=== PATIENT | female | born 1965 | race Caucasian/White ===

== ENCOUNTER → 2016-05-24 | Outpatient (CLI) | payer BC, OTHER ==
[2016-01-02 11:18] VITALS: BP 124/78
[~2016-05-24] MED LIST: DULO20CA PO; IBUP-1060 PO; TRAM50TA PO; ZOLPIDEM 5 MG TABLET. PO ONE
--- NOTE | 2016-05-31 20:32 | SLEEP ---
DATE OF STUDY: 05/24/2016 ATTENDING PHYSICIAN: Dr. Wayne Torres. The patient is 50 years old who weighs ____ pounds with a BMI of 41. The patient's [place] score was 3. Sleep study was performed to rule out JESUS. This was a split night study. During the night of the study, the patient spent 419 minutes in bed and slept for 302 minutes with a low sleep efficiency of 72%. Sleep latency was 8 minutes with a REM latency of 63 minutes. Overall, sleep architecture showed increased stage I sleep, normal stage II sleep, increased slow wave and normal REM sleep. During the initial diagnostic portion of the study, the patient slept for 139 minutes. During this time, there were 9 obstructive apneas, 22 mixed apneas and no central apneas. There were 111 hypopneas. The patient's apnea hypopnea index was 61 per hour. Supine index 42 per hour. REM sleep was not seen during the diagnostic portion of the study. EKG monitoring revealed average heart rate was 78 beats per minute. No sustained arrhythmias were observed. PLMS were not seen. Review of nocturnal oximetry study revealed mean oxygen saturation greater then 92% with lowest of 86%. 5% of time oxygen saturation remained between 80% and 89%. The patient met the criteria for CPAP initiation. It was started at 5 cm of water and titrated up to 7 cm of water. At the final pressure, the patient slept for 98 minutes. AHI was reduced to only 4 per hour due to few rebound central apneas. The patient had supine as well as REM sleep. Oxygen saturation remained above 92%. The patient used small sized nasal pillows. IMPRESSION: 1. Severe sleep apnea-hypopnea syndrome with an AHI of 61 per hour. 2. Mild nocturnal hypoxia secondary to obstructive sleep apnea, but resolved with CPAP. 3. No clinically significant periodic limb movements during sleep. RECOMMENDATIONS: 1. CPAP at 7 cm of water completely eliminated the patient's sleep apnea, and should be used on a nightly basis. 2. Follow up in 4-6 weeks to assess compliance with CPAP and to document clinical improvement. 3. Weight loss is strongly advised. 4. Avoid DIESEL INSPECTOR depressants. 5. Caution regarding driving until symptoms of sleep apnea resolve with the use of CPAP. JATINDER HIRSCH MD DR: THONY/jm JOB#: [id number] / [id number] Wayne Sanchez
== END | disposition home or self-care (01) ==
LOC: SLPLAB 18:19
PROVIDERS: ATTEND Family Medicine
DX: G47.33 Obstructive sleep apnea (adult) (pediatric) (principal); R06.83 Snoring
CPT/HCPCS: 95810

== ENCOUNTER → 2016-08-10 | Outpatient (CLI) | payer OTHER ==
[2016-01-02 11:18] VITALS: BP 124/78
[~2016-08-10] MED LIST changes: -ZOLPIDEM 5 MG TABLET. PO ONE
--- NOTE | 2016-08-10 12:27 | RAD ---
MRI Cervical Spine Without Contrast History: Numbness and tingling in the right arm Technique: Multiplanar, multi sequential noncontrast MR imaging was performed of the cervical spine. Comparison: None Findings: Cervical cord caliber is within normal limits without focal signal abnormality. There is no significant abnormality cervical medullary junction. Cervical vertebral body stature and AP alignment are maintained. There is straightening of the cervical spine. There is mild degenerative disc disease C5-C6, mild disc desiccation C4-5 and C6-7. There is no significant focal marrow edema. C2-C3: Neural foramina are adequate. Central canal is borderline 10 mm on a development basis. C3-C4: Central canal is minimally narrowed to 9 and 10 mm on a developmental basis. Neural foramina are adequate. C4-C5: There is very shallow posterior central protrusion. Central canal is narrowed to approximately 7-8 mm in part on a developmental basis. Neural foramina are adequate. C5-C6: There is a broad posterior bulge, also apparently a very shallow extrusion extending below the intervertebral disc centrally. There is indentation on the ventral thecal sac. Central canal is narrowed to approximately 7 mm. There is uncovertebral degenerative change greater on the left. There is moderate left and mild right neural foramina compromise. C6-C7: There is negligible posterior central protrusion. Central canal is minimally narrowed to 9 to 10 mm mostly on a development basis. There is uncovertebral degenerative change. There is likely mild narrowing of the left neural foramen. There is suggestion of a shallow protrusion at the anterior margin of the right neural foramen, possible mild/moderate narrowing of the right neural foramen. However accurate characterization is somewhat limited due to motion. C7-T1: Spinal canal and neural foramina are adequate. Impression: 1. There is diffuse narrowing of the cervical spinal canal on a developmental basis, additional spinal stenosis on the order of 7 mm at C5-C6 and to a lesser degree at C6-7 and C4-5 as described. 2. There is [id number] neural foramina compromise as described on the left at C5-C6 and possibly on the right at C6-7. Electronically signed by: Tam Leyva MD (08/10/2016 12:25 PM)
== END | disposition home or self-care (01) ==
LOC: MRI 10:53
PROVIDERS: ATTEND Family Medicine
DX: M47.892 Other spondylosis, cervical region (principal)
CPT/HCPCS: 72141

== ENCOUNTER → 2016-11-16 | Outpatient (CLI) | payer OTHER ==
[2016-01-02 11:18] VITALS: BP 124/78
[~2016-11-16] MED LIST changes: +ATOR40TA59 PO; +DIPH25CA58 PO; +IOHEXOL 180 MG/ML 10 ML VIAL. ONE; +TIZA4TAB PO; +VENL37.5 PO; +ZOLP5TAB PO; +methylPREDNISolone ACETATE 40 MG/ML VIAL. ONE; +methylPREDNISolone ACETATE 80 MG/ML VIAL. ONE
--- NOTE | 2016-11-16 15:08 | PAIN ---
DATE OF SERVICE: 11/16/2016 INITIAL CONSULTATION FOR PAIN CLINIC CHIEF COMPLAINT: Neck and right upper extremity pain. HISTORY OF PRESENT ILLNESS: This is a 51-year-old female who presents with history of pain in the base of the neck and right upper extremity radiating down into the arm for about 1-2 months. The patient reports it gradually increased without the result of any specific injury or action that she is aware of. It has been getting worse with time, becoming more difficult to sleep. It is difficulty to use her arm above her head. Even simple acts of getting dressed, putting her arm through a coat jacket, sleeves etc. is becoming very difficult. The patient reports of constant pain that is tingling with numbness and radiation to the right upper extremity, that can be cold sensations as well as burning, changes during the day, worse with activity, worse with using a mouse on her computer or writing notes at her desk. The patient reports as radiating both posteriorly and anteriorly in the arm, biceps, triceps, forearm both anteriorly and posteriorly on the entire hand and all the fingers. Also has pain across the middle upper back as well. The patient reports it awakens her from sleep 3-4 times at night and it affects her ability to walk sometimes as she feels uncomfortable because of the back pain. The patient reports she has had some chiropractic treatments, but nothing recently. No other physical therapies modalities or other treatments or therapies. The patient reports history of low back pain with previous lumbar laminectomy in as well. The patient reports no loss of motor function, but significant fatigability of the right hand compared to the left and the right arm with activity. PAST MEDICAL HISTORY: Significant for cigarette smoking, currently trying to quit. Previous low back pain and arthritis. PREVIOUS SURGERY: Include lumbar laminectomy in , ORIF of the left ankle in , breast reduction 1984, lithotripsy in the past with ureteral stone removal surgically also and right ganglion cyst removed. CURRENT MEDICATIONS: Include ibuprofen, tramadol, tizanidine, atorvastatin, venlafaxine, Ambien and Benadryl. ALLERGIES: The patient has no known drug allergies. FAMILY HISTORY: Significant for myotonic dystrophy and depression. SOCIAL HISTORY: The patient smokes less than a pack a day and has for the past 30+ years, trying to quit actively using hypnosis to quit. The patient is , lives with her spouse. 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 REVIEW OF SYSTEMS: The patient's review of systems is positive for those items mentioned in history of present illness. All systems reviewed and otherwise negative. It is complete, full and well documented on the patient's chart. PHYSICAL EXAMINATION: VITAL SIGNS: The patient's blood pressure is 129/84, pulse 60, respirations 18, temperature 98.6 degrees Fahrenheit, height 5 feet 4 inches, weighs 234 pounds. GENERAL: The patient is awake, alert, oriented, appropriate, very pleasant demeanor. HEENT: Head shows normocephalic, atraumatic. Extraocular movements are intact and symmetrical. Oral cavity, mucous membranes are moist and pink. Dentition is intact. NECK: Shows anterior throat supple without palpable lymphadenopathy noted. Swallow reflex is symmetrical. CHEST: Shows normal on inspection. Breath sounds clear to auscultation bilaterally. HEART: Shows S1 and S2 clear. No murmurs auscultated. ABDOMEN: Soft, nontender, nondistended. No palpable organomegaly. No rebound or guarding demonstrated. BACK: The patient's back shows spine grossly in the midline, normal-appearing cervical lordotic curvature, thoracic kyphotic curvature and mild flattening of lordotic curvature. Lumbar distribution shows a well-healed surgical scar in the midline. Neck shows cervical paraspinous musculature is symmetrical with palpation, shows some moderate tenderness only in the inferior aspect of the cervical paraspinous musculature again diffusely without trigger points, without radiation of pain. The patient shows full rotational motion of cervical spine, both laterally greater than 45 degrees right and left as well as full extension, full forward flexion without difficulty or pain reported. The patient's upper extremities show deep tendon reflexes at 2+ in the biceps and triceps tendons. Motor exam is strong with materials intern strength rated at 5/5 at biceps and triceps flexion without deficit. Peripheral pulses are 2+ radial distribution. No peripheral edema is noted. No clubbing, no cyanosis. Upper extremities are warm and dry to touch, equal in color and appearance. Shoulder shrug is strong and intact without loss of strength on resistance. Some minor pain in the right shoulder radiating into the posterior aspect of the tricep and the shoulder shrug abduction of shoulder is 90 degrees with some pain radiating in the same distribution on the right with resistance, but no loss of strength on resistance. IMPRESSION: 1. This is a 51-year-old female with a 2-month history of increasing pain in the base of the neck and right upper extremity in a radicular fashion. 2. MRI scan of the cervical spine showing diffuse narrowing of cervical spinal canal, C5-C6, C6-C7 with broad-based posterior disk bulge at C5-C6, very shallow extrusion as well with central canal narrowed approximately 7 mm, moderate left and mild right neural foraminal compromise at C6-C7 shows posterior central protrusion which is negligible, narrowing of the left neural foramen suggesting of shallow protrusion of the anterior margin of the right neural foramen and possible mild to moderate narrowing of the neural foramen as well. 3. Cigarette smoking. 4. Arthritis. PLAN: Options were discussed with the patient including conservative medical management with physical therapy, interventional techniques. She has done physical therapies in the past and is doing exercises on her own. She would like to pursue interventional techniques. We discussed a cervical epidural steroid injection using description as well as anatomical models to describe the procedure. Risks were then discussed including, but not limited to bleeding, infection, possibility of epidural hematoma and subsequent neurologic compromise, dural puncture, headaches, spinal cord and/or nerve damage, side effects of steroid medication and poor results regarding pain control. The patient understands and wished to proceed. The patient will return to clinic in approximately 2 weeks for followup, was counseled on return appointment, activity level and side effects to be aware of. DIAGNOSES: Cervical radiculopathy with cervical degenerative disk disease. PROCEDURE: Cervical epidural steroid injection translaminar approach at the C6-C7 level using C-arm fluoroscopic guidance under sterile prep and drape using local anesthetic. MEDICATIONS INJECTED: Total 120 mg Depo-Medrol plus a total of 5 mL of preservative-free normal saline and total of 2 mL of Isovue for contrast. CONDITION AT DISCHARGE: Stable. The patient tolerated procedure well, had no complications. JOAO JOHN MD DR: JITENDRA/jm JOB#: [id number] / [id number] Gus Mendoza
== END | disposition home or self-care (01) ==
LOC: PNCL 08:17
PROVIDERS: ATTEND Anesthesiology
DX: M50.123 Cervical disc disorder at C6-C7 level with radiculopathy (principal); F17.200 Nicotine dependence, unspecified, uncomplicated; F32.9 Major depressive disorder, single episode, unspecified
CPT/HCPCS: 62321; J1030; J1040

== ENCOUNTER → 2016-11-30 | Outpatient (CLI) | payer OTHER ==
[2016-01-02 11:18] VITALS: BP 124/78
--- NOTE | 2016-11-30 09:50 | PAIN ---
DATE OF SERVICE: 11/30/2016 PROGRESS NOTE FOR PAIN CLINIC DIAGNOSES: Cervical radiculopathy with cervical degenerative disk disease. HISTORY OF PRESENT ILLNESS: The patient is a 51-year-old female who returns for followup status post cervical epidural steroid injection x 1. The patient reports about 45% improvement after the first injection, still some tingling in the right hand and arm, which is annoying, it is better after the injection, but it is returning now. The patient reports the pain as a 9 on a scale of 10 at its worst, 7 on average and a 3 on a scale of 10 at its least and it is 4 today. The patient reports aching, dull, shooting, tingling and burning radiating more constant pain can be unbearable at times. The patient reports it is worse with holding her head straight or turning it to the right side, better with turning to the left. The patient reports it awakens her from sleep still occasionally, but only sporadically, not every night. The patient reports no new motor or sensory deficits, no new changes. PHYSICAL EXAMINATION: VITAL SIGNS: The patient's blood pressure 120/92, pulse 85, respirations 16, temperature 98.3 degrees Fahrenheit, height is 5 feet 4 inches, weight is 233 pounds. GENERAL: The patient is awake, alert, oriented, appropriate, very pleasant demeanor. HEENT: Head is normocephalic, atraumatic. Extraocular movements are intact and symmetrical. Oral cavity shows mucous membranes are moist and pink. Dentition is intact. NECK: Shows the anterior throat is supple without palpable lymphadenopathy noted. Swallow reflex is symmetrical. CHEST: Shows normal on inspection. Breath sounds are clear to auscultation bilaterally. HEART: Shows S1 and S2 clear. ABDOMEN: Soft, nontender, nondistended. No palpable organomegaly. No rebound or guarding demonstrated. BACK: The patient's back shows spine grossly in the midline. The patient's cervical paraspinous muscle shows some diffuse tenderness in the middle and inferior aspect of the cervical paraspinous musculature without significant radiation. Good rotational motion again tender with rotation and guarded to the right past 45 degrees with full rotation to the left past 45 degrees to 90 degrees. The patient's extension shows full range of motion as does forward flexion without significant difficulty or guarding. EXTREMITIES: Upper extremities showed deep tendon reflexes 2+ in the biceps and triceps tendons. Motor exam is strong with retort load expediter strength rated at 5/5 and equal and symmetrical. Peripheral pulses are 2+ radial distribution. Options were discussed with the patient and the patient's old chart was reviewed as her current medication regimen updated. Current review of systems updated today as well. We will proceed with a second in this series of cervical epidural steroid injection with fluoroscopic guidance. Risks were again discussed including, but not limited to bleeding, infection, possibility of epidural hematoma and subsequent neurologic compromise, dural puncture, headaches, spinal cord and/or nerve damage, side effects of steroid medication and poor results regarding pain control. The patient understands and wishes to proceed. The patient will return to the clinic in approximately 2 weeks for followup, was counseled on return appointment, activity level and side effects to be aware of. DIAGNOSES: Cervical radiculopathy with cervical degenerative disk disease. PROCEDURE: Cervical epidural steroid injection in translaminar approach at the C6-C7 level using C-arm fluoroscopic guidance under sterile prep and drape using local anesthetic. MEDICATION INJECTED: A total of 120 mg Depo-Medrol plus 5 mL preservative-free normal saline and 2 mL of Isovue for contrast. CONDITION AT DISCHARGE: Stable. The patient tolerated procedure well, had no complications. JOAO JOHN MD DR: JITENDRA/jm JOB#: [id number] / [id number]
== END ==
LOC: PNCL 07:59
PROVIDERS: ATTEND Anesthesiology
DX: M50.123 Cervical disc disorder at C6-C7 level with radiculopathy (principal)
CPT/HCPCS: 62321; J1030; J1040

== ENCOUNTER → 2016-12-14 | Outpatient (CLI) | payer OTHER ==
[2016-01-02 11:18] VITALS: BP 124/78
--- NOTE | 2016-12-14 12:42 | PAIN ---
DATE OF SERVICE: 12/14/2016 DATE OF SERVICE: 12/14/2016 DIAGNOSES: Cervical radiculopathy with cervical degenerative disk disease. HISTORY OF PRESENT ILLNESS: The patient is a 51-year-old female who returns for followup status post cervical epidural steroid injections x 2. The patient reports about 60% improvement overall. Neck pain is controlled almost 100%, but her right upper extremity pain still significant with some tingling and aching, radiating in the right arm, worse with turning her head to the right past about 45 degrees. The patient reports the pain at worst is an 8 on a scale of 10, it is on average about a 5 and is a 1 on its least, and it is a 1 today. The patient reports she has been sleeping fairly well at night. Occasionally it wakes her up, but not every night. She sleeps 6 to 7 hours at a time. The patient reports no new motor or sensory deficits, no new changes, some tingling remaining in the right arm, which is her main complaint, again sleeping better, but the arm is minimally improved compared to the neck, which is significantly improved. The patient reports no other changes. PHYSICAL EXAMINATION: VITAL SIGNS: Today, the patient's blood pressure 103/42, pulse 77, respirations are 16, temperature is 98.2 degrees Fahrenheit, weight is 233 pounds. GENERAL: The patient is awake, alert, oriented, appropriate, very pleasant demeanor. HEENT: Head shows normocephalic, atraumatic. Extraocular movements are intact, symmetrical. Oral cavity, mucous membranes are moist and pink. Dentition is intact. NECK: Shows anterior throat supple without palpable lymphadenopathy noted. Swallow reflex is symmetrical. CHEST: Shows normal on inspection. Breath sounds clear to auscultation bilaterally. HEART: Shows S1 and S2 clear. No murmurs auscultated. ABDOMEN: Obese, soft, nontender, nondistended. No palpable organomegaly is noted. BACK: Shows spine grossly midline. Lumbar paraspinous musculature shows some mild tenderness with palpation, but only diffusely. Cervical paraspinous musculature shows symmetrical on inspection, with palpation shows some mild tenderness on the right side only in the inferior aspect of the cervical paraspinous muscles, superior medial trapezius. Lateral trapezius, however, is nontender and it is nontender on the left. The patient shows good rotational motion with extension and flexion, right and left lateral rotation past 45 degrees with pain reported and tingling in the arm with rotation on the right past 45 degrees. EXTREMITIES: Upper extremity showed deep tendon reflexes at 2+ in the biceps and triceps tendons. Motor exam is strong with display designer strength rated at 5/5 as is biceps and triceps flexion and symmetrical. Peripheral pulses are 2+ radial. No peripheral edema is noted. Options were discussed with the patient and the patient's old chart was reviewed as her current medication regimen updated. Current review of systems updated today as well. We will proceed with a third in a series of cervical epidural steroid injection today with fluoroscopic guidance. Risks were again discussed including, but not limited to bleeding, infection, possibility of epidural hematoma, subsequent neurologic compromise, dural punctures, headaches, spinal cord and/or nerve damage, side effects of steroid medication and poor results regarding pain control. The patient understands and wishes to proceed. The patient will return to clinic in approximately 2 weeks for followup. She was counseled on return appointment, activity level and side effects to be aware of. DIAGNOSIS: Cervical radiculopathy, cervical degenerative disk disease. PROCEDURE: Cervical epidural steroid injection in translaminar approach at C6-C7 level using C-arm fluoroscopic guidance under sterile prep and drape using local anesthetic. MEDICATIONS INJECTED: A total of 120 mg Depo-Medrol plus 5 mL of preservative-free normal saline and 2 mL of Isovue for contrast. CONDITION AT DISCHARGE: Stable. The patient tolerated procedure well, had no complications. JOAO JOHN MD DR: JITENDRA/jm JOB#: [id number] / [id number]
== END | disposition home or self-care (01) ==
LOC: PNCL 10:14
PROVIDERS: ATTEND Anesthesiology
DX: M50.123 Cervical disc disorder at C6-C7 level with radiculopathy (principal); F17.200 Nicotine dependence, unspecified, uncomplicated; F32.9 Major depressive disorder, single episode, unspecified; Z88.8 Allergy status to other drugs, medicaments and biological substances
CPT/HCPCS: 62321; J1030; J1040

== ENCOUNTER → 2017-02-17 | Outpatient (CLI) | payer OTHER ==
[2016-01-02 11:18] VITALS: BP 124/78
[~2017-02-17] MED LIST changes: -IOHEXOL 180 MG/ML 10 ML VIAL. ONE; -methylPREDNISolone ACETATE 40 MG/ML VIAL. ONE; -methylPREDNISolone ACETATE 80 MG/ML VIAL. ONE
--- NOTE | 2017-02-17 11:32 | RAD ---
Indication: Right leg edema. Grayscale, color-flow and duplex Doppler evaluation of the right lower extremity deep venous system was performed. FINDINGS: There is no evidence of a right lower extremity DVT. The right lower extremity venous system demonstrates normal compressibility with normal response to augmentation and Valsalva. No soft tissue fluid collections are identified. IMPRESSION: No evidence of right lower extremity DVT.
--- NOTE | 2017-02-17 13:34 | RAD ---
DATE: 02/17/2017 EXAM: DIGITAL DIAGNOSTIC BILATERAL HISTORY: Right breast density. Patient returns for follow-up. COMPARISON: 07/03/2015 and 06/19/2015. This study was interpreted with the benefit of Computerized Aided Detection (CAD ). FINDINGS: Bilateral CC and MLO views were obtained. In addition, spot compression CC and MLO as well as rolled CC views of the right breast were obtained. There is a persistent irregular density identified in the inner aspect of the right breast at mid depth approximately 5 to 6 cm from the nipple. Overall prominence appears to be slightly increased when compared with examination from 18 months ago. No definite correlate is identified on the MLO view. The density could be inferiorly located. No suspicious calcifications are seen. Impression: Persistent irregular density in the inner right breast mid depth, slightly more prominent when compared with study dating back to June 2015. Further evaluation with ultrasound is recommended. Right breast ultrasound: Sonographic interrogation of the inner right breast was performed. No solid or cystic mass is identified. Breast Density: FATTY The breast parenchyma is primarily fatty replaced. Breast parenchyma level density A. IMPRESSION: No sonographic abnormality is identified. However, the density does appear to be slightly more prominent on mammography and remains indeterminate. Further evaluation with MRI of the breasts is recommended for further characterization. BI-RADS CATEGORY: 0 INCOMPLETE: NEEDS ADDITIONAL IMAGING EVALUATION AND/OR PRIOR MAMMOGRAMS FOR COMPARISON. RECOMMENDED FOLLOW-UP: ADD ADDITIONAL IMAGING PQRS compliance statement: Patient information was entered into a reminder system with a target due date for the next mammogram. Mammography is a sensitive method for finding small breast cancers, but it does not detect them all and is not a substitute for careful clinical examination. A negative mammogram does not negate a clinically suspicious finding and should not result in delay in biopsying a clinically suspicious abnormality. "Our facility is accredited by the [employer] Mammography Program." [facility]
== END | disposition home or self-care (01) ==
LOC: MAMMO 09:06
PROVIDERS: ATTEND Family Medicine
DX: R92.2 Inconclusive mammogram (principal); R60.0 Localized edema
CPT/HCPCS: 76641; 93971; G0204; 77066

== ENCOUNTER → 2017-04-10 | Outpatient (CLI) | payer OTHER ==
[2017-04-10 12:58] LABS: THYROID STIM HORMONE (TSH) 1.421 uIU/mL (0.358-3.74)
[2017-04-10 21:14] LABS: FSH 16.8 mIU/mL (.)
== END | disposition home or self-care (01) ==
LOC: LAB 12:11
DX: N92.0 Excessive and frequent menstruation with regular cycle (principal)
CPT/HCPCS: 36415; 83001; 84443

== ENCOUNTER → 2017-04-28 | Outpatient (CLI) | payer OTHER | END | disposition home or self-care (01) | LOC: US 12:09 | DX: N92.0 Excessive and frequent menstruation with regular cycle (principal); R93.8 Abnormal findings on diagnostic imaging of other specified body structures | CPT/HCPCS: 76830; 76856 ==

== ENCOUNTER → 2017-08-14 | Outpatient (CLI) | payer OTHER | END | disposition home or self-care (01) | LOC: MAMMO 12:46 | DX: R92.8 Other abnormal and inconclusive findings on diagnostic imaging of breast (principal) | CPT/HCPCS: 76641; 77065; G0279 ==

== ENCOUNTER → 2017-08-17 | Outpatient (CLI) | payer OTHER ==
[~2017-08-17] MED LIST changes: -ATOR40TA59 PO; +BUPIVACAINE MPF 0.25% 30 ML VIAL.; -DIPH25CA58 PO; -DULO20CA PO; -IBUP-1060 PO; +IOHEXOL 180 MG/ML 10 ML VIAL.; +LIDOCAINE 1% PF 2 ML VIAL.; -TIZA4TAB PO; -TRAM50TA PO; -VENL37.5 PO; -ZOLP5TAB PO; +methylPREDNISolone ACETATE 40 MG/ML VIAL.; +methylPREDNISolone ACETATE 80 MG/ML VIAL.
== END ==
LOC: PNCL 10:47
DX: M50.10 Cervical disc disorder with radiculopathy, unspecified cervical region (principal)
CPT/HCPCS: 62321; J1030; J1040; J3490; Q9965

== ENCOUNTER → 2017-09-08 | Outpatient (CLI) | payer OTHER ==
[~2017-09-08] MED LIST changes: -BUPIVACAINE MPF 0.25% 30 ML VIAL.
== END | disposition home or self-care (01) ==
LOC: PNCL 10:37
DX: M50.123 Cervical disc disorder at C6-C7 level with radiculopathy (principal)
CPT/HCPCS: 62321; J1030; J1040; Q9965

== ENCOUNTER → 2017-10-31 | Outpatient (CLI) | payer OTHER ==
[2016-01-02 11:18] VITALS: BP 124/78
[~2017-10-31] MED LIST changes: +ATOR40TA59 PO; +BACL10TA PO; +DIPH25CA58 PO; +DULO20CA PO; +IBUP-1060 PO; -IOHEXOL 180 MG/ML 10 ML VIAL.; -LIDOCAINE 1% PF 2 ML VIAL.; +NAPR-695 PO; +TIZA4TAB PO; +TRAM50TA PO; +VENL37.5 PO; +ZOLP5TAB PO; -methylPREDNISolone ACETATE 40 MG/ML VIAL.; -methylPREDNISolone ACETATE 80 MG/ML VIAL.
--- NOTE | 2017-10-31 20:52 | PAIN ---
DATE OF SERVICE: 10/31/2017 PROGRESS NOTE FOR PAIN CLINIC DIAGNOSIS: Cervical radiculopathy with cervical degenerative disk disease. HISTORY OF PRESENT ILLNESS: The patient is a 52-year-old female who returns for followup status post cervical epidural steroid injection x 2. The patient reports about 85% improvement and is still doing well with the pain in her neck and her left upper shoulder. The patient reports she has been increasing her activity at work and has been able to do with much greater ease and comfort. She is still taking tramadol and baclofen on a regular basis and reports it does work very well for her without any side effects. The patient reports she quit smoking for the past 4 weeks and is maintaining a nonsmoking status at this point. The patient reports no new motor or sensory deficits and no new bowel or bladder incontinence. The patient reports pain is 6-7 on a scale of 10 at its worst, 4 on average and a 4 at its least and is a 4 today. The patient reports it is tight, shooting, occasionally radiating, burning and stabbing in the base of the neck and shoulder. No new motor or sensory deficits and no new bowel or bladder incontinence. PHYSICAL EXAMINATION: VITAL SIGNS: The patient's blood pressure 130/81, pulse 90, respirations 18, temperature 98.0 degrees Fahrenheit, height is 5 feet 4 inches and weight is 231 pounds. GENERAL: The patient is awake, alert, oriented, appropriate and very pleasant demeanor. HEENT: Head shows normocephalic and atraumatic. Extraocular movements intact and symmetrical. Oral cavity: Mucous membranes moist and pink. Dentition is intact. NECK: Shows anterior throat supple without palpable lymphadenopathy noted. Swallow reflex symmetrical. CHEST: Shows normal on inspection. Breath sounds clear to auscultation bilaterally. HEART: Shows S1 and S2 clear. No murmurs auscultated. ABDOMEN: Soft, nontender and nondistended. No palpable organomegaly is noted. No rebound or guarding demonstrated. BACK: Shows spine grossly in the midline. Neck shows cervical lordotic curvature maintained as is thoracic kyphotic curvature. Cervical paraspinous muscle shows symmetrical on inspection, with palpation shows some minor tenderness with palpation in the left inferior aspect of the cervical paraspinous muscles and also superior medial trapezius but only diffusely without radiation. No asymmetry and no trigger points. The patient has good rotational motion of the cervical spine, both laterally as well as extension and flexion without pain reported. EXTREMITIES: Upper extremities show deep tendon reflexes at 2+ in the biceps and triceps tendons. Motor exam is strong with 5/5 lead atg developer strength, bicep and tricep flexion. Peripheral pulses are 2+ radial distribution. No peripheral edema is noted. Options were discussed with the patient. The patient's old chart was reviewed as well as her current medication regimen updated. Current review of systems is updated today as well. We will hold on any further injection at this time as the patient is doing quite better. We encouraged her to increase her activity as tolerated, also with ergonomic recommendations for her computer at work as well as stretching and strengthening exercises of the neck and shoulders. The patient will continue with these and we will follow up at this time on as needed basis. JOAO JOHN MD DR: [email or web address] JOB#: [id number] / [id number]
== END | disposition home or self-care (01) ==
LOC: PNCL 12:51
PROVIDERS: ATTEND Anesthesiology
DX: M50.10 Cervical disc disorder with radiculopathy, unspecified cervical region (principal); Z88.8 Allergy status to other drugs, medicaments and biological substances; Z87.891 Personal history of nicotine dependence; Z87.442 Personal history of urinary calculi; Z90.13 Acquired absence of bilateral breasts and nipples
CPT/HCPCS: 99212

== ENCOUNTER → 2018-01-10 | Outpatient (CLI) | payer OTHER ==
[2016-01-02 11:18] VITALS: BP 124/78
--- NOTE | 2018-01-10 14:46 | RAD ---
Indication: Plantar fasciitis. Right foot pain TECHNIQUE: 3 views of the right foot COMPARISON: None Findings/ impression: No acute fracture or dislocation. Small plantar calcaneal spur. No soft tissue abnormality. Electronically signed by: Cam Fernandez DO (01/10/2018 2:43 PM) [id number]
== END | disposition home or self-care (01) ==
LOC: RAD 11:55
PROVIDERS: ATTEND Family Medicine
DX: M79.671 Pain in right foot (principal)
CPT/HCPCS: 73630

== ENCOUNTER → 2018-05-21 | Outpatient (CLI) | payer OTHER ==
[2016-01-02 11:18] VITALS: BP 124/78
[~2018-05-21] MED LIST changes: +IOHEXOL 240 MG/ML 50ML VIAL. PO ONE; +IOHEXOL 300 MG/ML 100ML VIAL. IV ONE
--- NOTE | 2018-05-21 10:56 | RAD ---
PQRS Compliance Statement: One or more of the following individualized dose reduction techniques were utilized for this examination: 1. Automated exposure control 2. Adjustment of the mA and/or kV according to patient size 3. Use of iterative reconstruction technique CT abdomen/pelvis with contrast 05/21/2018 9:59 AM INDICATION: Right lower quadrant abdominal mass COMPARISON: Pelvis ultrasound April 28, 2017 TECHNIQUE: Multiple axial CT images of the abdomen and pelvis were obtained after the intravenous administration of 75 mL Omnipaque 300. Coronal and sagittal reformats are provided. FINDINGS: Lung bases are clear. Heart size is within normal limits. Liver, spleen, bilateral adrenal glands, pancreas and gallbladder are normal in appearance. Abdominal aorta is normal in course and caliber. There is a retroaortic left renal vein. There are no pathologically enlarged lymph nodes in abdomen and pelvis. There is no free fluid or free intraperitoneal air. The kidneys enhance symmetrically. There is no suspicious renal mass. There is no hydronephrosis. There are no suspected calculi within the kidneys, ureters or urinary bladder. There is mild colonic diverticulosis. Oral contrast was administered. Opacified bowel loops demonstrate normal mucosal fold pattern. Small and large bowel are normal in caliber. There is no evidence for bowel obstruction. There are no pericolonic inflammatory changes. A normal, nondilated appendix is visualized without adjacent inflammatory changes. Uterus and adnexa are normal by CT. Urinary bladder is within normal limits given degree of distention. There is calcification within the lower cervix. No suspicious osseous abnormality is identified. There is moderate degenerative disc disease at L5-S1. IMPRESSION: No suspicious right lower quadrant mass as clinically suspected. Mild colonic diverticulosis without adjacent inflammation. Electronically signed by: Suzy Butler MD (05/21/2018 10:52 AM) [id number]
== END | disposition home or self-care (01) ==
LOC: CT 08:53
PROVIDERS: ATTEND Nurse Practitioner Gerontology
DX: K57.30 Diverticulosis of large intestine without perforation or abscess without bleeding (principal); N88.8 Other specified noninflammatory disorders of cervix uteri; M47.817 Spondylosis without myelopathy or radiculopathy, lumbosacral region
CPT/HCPCS: 74177; Q9966; Q9967

== ENCOUNTER → 2018-12-03 | Outpatient (CLI) | payer OTHER ==
[2016-01-02 11:18] VITALS: BP 124/78
[~2018-12-03] MED LIST changes: -IOHEXOL 240 MG/ML 50ML VIAL. PO ONE; -IOHEXOL 300 MG/ML 100ML VIAL. IV ONE; -TIZA4TAB PO; +TIZA4TAB2 PO
[2018-12-03 13:39] LABS: BASO % 1 % (0-3); EOS # 0.1 x10^3/uL (0.0-0.7); EOS % 2 % (0-3); HEMATOCRIT 38.4 % (36.0-47.0); LYMPH # 1.4 x10^3/uL (1.0-4.8); LYMPH % 20 % (24-48); MEAN CORPUSCULAR HEMOGLOBIN 33 pg (25-35); MEAN CORPUSCULAR HGB CONC 34 g/dL (31-37); MEAN CORPUSCULAR VOLUME 96 fL (79-100); MONO # 0.6 x10^3/uL (0.0-1.1); MONO % 9 % (0-9); NEUT % 70 % (31-73); PLATELET COUNT 373 x10^3/uL (140-400); RED BLOOD COUNT 3.98 x10^6/uL (3.50-5.40); WHITE BLOOD COUNT 7.1 x10^3/uL (4.0-11.0)
[2018-12-03 14:09] LABS: ALBUMIN 3.8 g/dL (3.4-5.0); ALBUMIN/GLOBULIN RATIO 0.8 (1.0-1.7); CALCIUM 9.2 mg/dL (8.5-10.1); CREATININE 0.7 mg/dL (0.6-1.0); GFR 88.2; POTASSIUM 4.1 mmol/L (3.5-5.1); TOTAL BILIRUBIN 0.4 mg/dL (0.2-1.0); TOTAL PROTEIN 8.4 g/dL (6.4-8.2)
[2018-12-03 14:14] LABS: CHOLESTEROL/HDL RATIO 3.8
== END | disposition home or self-care (01) ==
LOC: LAB 13:11
PROVIDERS: ATTEND Family Medicine
DX: R53.83 Other fatigue (principal); E78.5 Hyperlipidemia, unspecified
CPT/HCPCS: 36415; 80053; 80061; 82306; 82607; 84443; 85025

== ENCOUNTER → 2019-01-31 | Outpatient (CLI) | payer OTHER ==
[2016-01-02 11:18] VITALS: BP 124/78
--- NOTE | 2019-01-31 16:29 | KCIC ---
EXAM: Thoracic spine, 3 views. HISTORY: Pain. COMPARISON: None. FINDINGS: 3 views of the thoracic spine are obtained. There is multilevel endplate remodeling and Schmorl's node formation. There is no thoracic listhesis. There is minimal anterolisthesis of C4 on C5 which is likely positional. IMPRESSION: Multilevel degenerative change involving the thoracic spine. No acute osseous finding. Electronically signed by: Olinda Badillo MD (01/31/2019 4:26 PM) [facility]
== END | disposition home or self-care (01) ==
LOC: KCIC 15:17
PROVIDERS: ATTEND Family Medicine
DX: M47.814 Spondylosis without myelopathy or radiculopathy, thoracic region (principal); M51.44 Schmorl's nodes, thoracic region
CPT/HCPCS: 72072

== ENCOUNTER → 2019-05-01 | Outpatient (CLI) | payer OTHER ==
[2016-01-02 11:18] VITALS: BP 124/78
[~2019-05-01] MED LIST changes: +GADOTERATE 7.5 MMOL/15ML VIAL. IVP ONE
--- NOTE | 2019-05-01 10:31 | RAD ---
MRI Lumbar Spine without and with contrast History: Low back pain, right leg radiculopathy, previous laminectomy Technique: Multiplanar, multi sequential pre and postcontrast MR imaging was performed of the lumbar spine. Comparison: None Findings: Lumbar vertebral body stature is overall maintained other than multilevel small Schmorl's nodes. There is negligible posterior subluxation L5 relative S1. Conus terminates at L1. There is no nodular enhancement conus or cauda equina, no significant enhancement in the intervertebral disc spaces. There is advanced L5-S1 degenerative disc disease, degenerative endplate change at this level. There is mild degenerative disease at L1-L2 and L4-5, mild disc desiccation at the levels. Note is made of retroaortic left renal vein. T12-L1: This level was not included on the axial images. There is facet degenerative change and buckling of the ligamentum flavum greater on the right indenting the posterior thecal sac in the right lateral recess, spinal canal not significantly narrowed. There is mild posterior narrowing of the right neural foramen by facet and ligamentum flavum. Left neural foramen is adequate. L1-L2: There is a posterior extrusion extending slightly above and below the intervertebral disc space greatest centrally, measures about 14 mm CC by 4 mm AP by about 10 mm transverse. There is mild prominence of posterior epidural fat centrally and mild buckling of the ligamentum flavum. Combination of findings results in moderate spinal stenosis including narrowing of the lateral recesses bilaterally. Neural foramina are adequate. L2-L3: There is mild facet degenerative change and buckling of the ligamentum flavum. There is very minimal disc osteophyte complex. There is mild narrowing of the far lateral recesses bilaterally. Neural foramina are adequate. L3-L4: There is mild buckling of the ligamentum flavum and facet hypertrophic change. There is mild narrowing of the far lateral recesses greater on the right. Neural foramina are adequate. L4-L5: There is disc osteophyte complex, superimposed enhancing extradural signal abnormality in the anterior right lateral recess and centrally. There is glxa-bo-etvnlxpr buckling of the ligamentum flavum and mild facet degenerative change. Combination of findings results in moderate to severe spinal stenosis with limited preserved subarachnoid space, lateral recess stenosis bilaterally with contact of the descending L5 nerve roots bilaterally. There is mild neural foramina compromise greater on the left from posteriorly by facet. L5-S1: There is left laminectomy defect. There is hoqz-zb-tugnjnly facet degenerative change. There is disc osteophyte complex and bulge superimposed on the minimally posteriorly subluxed L5 vertebral body margin, near the ventral surface descending right S1 nerve root without displacement or significant spinal stenosis. There is cfyt-pa-edlzdzwn narrowing of the left neural foramen, disc osteophyte complex contacting undersurface exiting left L5 nerve root. There is also overall mild narrowing of the right neural foramen, disc osteophyte complex near undersurface of exiting right L5 nerve root in the extraforaminal region. Impression: 1. There is moderate to severe spinal stenosis at L4-5 with limited preserved subarachnoid space, lateral recess stenosis bilaterally with contact of the descending L5 nerve roots. There is a component of enhancing fibrosis anteriorly greater in the right lateral recess. There is moderate spinal stenosis including narrowing of the lateral recesses bilaterally at L1-2. There is other minimal narrowing of the lateral recesses at L2-3 and L3-4 as described, also disc osteophyte complex and bulge at L5-S1 near the descending right S1 nerve root without significant displacement. 2. There is lumbar neural foramina compromise as stated, vuir-mw-bnnlnsne narrowing on the left at L5-S1, minimal narrowing bilaterally at L4-5 and on the right at L5-S1 and T12-L1. 3. There is advanced L5-S1 degenerative disc disease, minimally at more superior levels. 4. There is minimal posterior subluxation L5 relative to S1. There is multilevel lumbar facet degenerative change. 5. Incidental note is made of retroaortic left renal vein. Electronically signed by: Tam Leyva MD (05/01/2019 10:28 AM) [id number]
== END ==
LOC: MRI 08:17
PROVIDERS: ATTEND Family Medicine
DX: M51.37 Other intervertebral disc degeneration, lumbosacral region (principal); M25.78 Osteophyte, vertebrae; M48.07 Spinal stenosis, lumbosacral region; M48.04 Spinal stenosis, thoracic region
CPT/HCPCS: 72158; A9575

== ENCOUNTER → 2019-05-20 | Outpatient (CLI) | payer OTHER ==
[2016-01-02 11:18] VITALS: BP 124/78
[~2019-05-20] MED LIST changes: -GADOTERATE 7.5 MMOL/15ML VIAL. IVP ONE; +IOHEXOL 180 MG/ML 10 ML VIAL. ONE; +LIDO1ADH63 TP; +ZOLP12.54 PO; +methylPREDNISolone ACETATE 40 MG/ML VIAL. ONE; +methylPREDNISolone ACETATE 80 MG/ML VIAL. ONE
--- NOTE | 2019-05-20 09:49 | PAIN ---
DATE OF SERVICE: 05/20/2019 PROGRESS NOTE FOR PAIN CLINIC DIAGNOSES: 1. Lumbar radiculopathy with lumbar degenerative disk disease, lumbar spinal stenosis and post-lumbar laminectomy syndrome. 2. Cervical radiculopathy with cervical degenerative disk disease. HISTORY OF PRESENT ILLNESS: The patient is a 53-year-old female, who returns for followup, last seen in 10/2017. The patient had cervical epidural steroid injections x 3 with very good results, about 85% improvement overall. The patient reports her main complaint now is low back and right lower extremity pain. The patient reports significant pain in the posterior gluteus, posterior thigh, radiating to posterior calf, lateral calf, anterior thigh, anterior medial thigh and medial lower leg. The patient reports it is worse for about 6-7 weeks now. No specific injury or action that she is aware of. The patient reports the pain is aching, tingling, stabbing, radiating, becoming unbearable with weightbearing, standing and walking. The patient reports it is 7 on a scale of 10 at its worst over the past week, 3 on an average, 3 at its least and is a 4 today. The patient reports no new motor or sensory deficits, no new bowel or bladder incontinence. The patient did have a new MRI scan, which we discussed with her, showing emtexnjx-qe-jkarbm spinal stenosis at L4-L5 with limited preserved subarachnoid space and lateral recess stenosis bilaterally, which contacted the descending L5 nerve roots. The patient reports it is worse with walking, standing, changing positions and it is better with sitting or lying down, does not awaken her from sleep at night most times. PHYSICAL EXAMINATION: VITAL SIGNS: The patient's blood pressure 125/76, pulse 77, respirations 18, temperature 97.6 degrees Fahrenheit, height is 5 feet 4 inches, weight is 240 pounds. GENERAL: The patient is awake, alert, oriented, appropriate, very pleasant demeanor. HEENT: Shows normocephalic, atraumatic. Extraocular movements are intact and symmetrical. Oral cavity: Mucous membranes moist and pink; dentition is intact. NECK: Shows anterior throat supple without palpable lymphadenopathy noted. Swallow reflex symmetrical. CHEST: Shows normal on inspection. Breath sounds are clear bilaterally. HEART: Shows S1, S2 clear. No murmurs auscultated. ABDOMEN: Soft, nontender and nondistended. No palpable organomegaly is noted. There is no rebound or guarding demonstrated. BACK: Shows spine grossly in the midline. Normal-appearing cervical lordotic curvature, thoracic kyphotic curvature and some slight flattening of the lumbar lordotic curvature. Lumbar paraspinous muscle shows symmetrical on inspection, on palpation shows some moderate tenderness diffusely bilaterally going diffusely with the palpation of the low lumbar distribution of the paraspinous muscles without radiation, no trigger points, no atrophy or hypertrophy. The patient has good rotational motion of lumbar spine, both laterally greater than 10 degrees, right and left, as well as extension greater than 10 degrees, forward flexion 45 degrees without pain reported. No tenderness over the spinous processes, sacrum or sacroiliac regions. EXTREMITIES: The patient's lower extremities show deep tendon reflexes are 1+ patellar and tendo-calcaneus tendons. Motor exam is strong with 5/5 dorsiflexion, extension, quadriceps and hamstring flexion, symmetrical. Peripheral pulses are 1+ posterior tibial. No peripheral edema is noted. Options were discussed with the patient. The patient's old chart was reviewed as her current medication regimen updated. Current review of systems updated today as well. We will proceed with a lumbar epidural steroid injection today with fluoroscopic guidance. Risks were discussed including, but not limited to bleeding, infection, possibility of epidural hematoma, subsequent neurological compromise, dural puncture, headaches, spinal cord and/or nerve damage, side effects of steroid medication and poor results regarding pain control. The patient understands and wished to proceed. The patient will return to the clinic in approximately 2 weeks for followup. She was counseled on return appointment, activity level and side effects to be aware of. DIAGNOSIS: Lumbar radiculopathy with lumbar degenerative disk disease, lumbar spinal stenosis and post-lumbar laminectomy syndrome. PROCEDURE: Lumbar epidural steroid injection, translaminar approach, at the L4-L5 level, using C-arm fluoroscopic guidance under sterile prep and drape using local anesthetic. MEDICATIONS INJECTED: A total of 120 mg of Depo-Medrol plus 10 mL of preservative-free normal saline and 2 mL of contrast. CONDITION AT DISCHARGE: Stable. The patient tolerated the procedure well, had no complications. JOAO JOHN MD DR: [email or web address]/jm JOB#: [id number] / [id number]
== END ==
LOC: PNCL 07:19
PROVIDERS: ATTEND Anesthesiology
DX: M51.16 Intervertebral disc disorders with radiculopathy, lumbar region (principal); M48.061 Spinal stenosis, lumbar region without neurogenic claudication; M96.1 Postlaminectomy syndrome, not elsewhere classified; M50.10 Cervical disc disorder with radiculopathy, unspecified cervical region
CPT/HCPCS: 62323; J1030; J1040; Q9965

== ENCOUNTER 2021-07-05 11:44 | Inpatient (IN) | payer OTHER ==
[~2021-07-05] VITALS: Ht 167.6 cm; Wt 102.2 kg
[~2021-07-05 11:44] MED LIST changes: -IOHEXOL 180 MG/ML 10 ML VIAL. ONE; +TIZA-75 PO; -TIZA4TAB2 PO; -ZOLP12.54 PO; +ZOLP12.56 PO; -methylPREDNISolone ACETATE 40 MG/ML VIAL. ONE; -methylPREDNISolone ACETATE 80 MG/ML VIAL. ONE
--- NOTE | 2021-07-05 13:05 | PHYS DOC ---
Past Medical History Past Medical History: Kidney Stone, Other Additional Past Medical Histor: possible breast ca Past Surgical History: No Surgical History Additional Past Surgical Histo: radical bilat mastectomy, left leg, Lumbar Smoking Status: Current Every Day Smoker Alcohol Use: Occasionally Drug Use: None General Adult EDM: Chief Complaint: NEURO SYMPTOMS/DEFICITS HPI: HPI: Patient is a 55-year-old female who presents today with mental status change. According to the sister who is with the patient today starting on Monday patient's been unable to answer questions such as who have family members are forgetting where people live out while driving, she is also having word finding issues, she is also forgetting where people are or what she was doing at a certain time. Patient is unable to say what month it is or her age at this time, she does have stable gait with ambulation, and denies any dizziness. Sister also states that patient's left her on Monday to go to [place] and according to the sister there is a possibility of a separation or divorce. Patient denies any past medical history, she states not taking any medications except for Tylenol and/or ibuprofen as needed for pain, she denies fever chills, chest pain, shortness of breath, or painful urination. Sister who is at the bedside states that she called patient's primary care physician which is Dr. Torres and he advised them to come to the emergency department for further evaluation and treatment. Review of Systems: Review of Systems: Constitutional: Denies fever or chills. [] Eyes: Denies change in visual acuity. [] HENT: Denies nasal congestion or sore throat. [] Respiratory: Denies cough or shortness of breath. [] Cardiovascular: Denies chest pain or edema. [] GI: Denies abdominal pain, nausea, vomiting, bloody stools or diarrhea. [] : Denies dysuria. [] Musculoskeletal: Denies back pain or joint pain. [] Integument: Denies rash. [] Neurologic: Headache, mental status change Endocrine: Denies polyuria or polydipsia. [] Lymphatic: Denies swollen glands. [] Psychiatric: Denies depression or anxiety. [] Heart Score: C/O Chest Pain: No Risk Factors: Risk Factors: DM, Current or recent (<one month) smoker, HTN, HLP, family history of CAD, obesity. Risk Scores: Score 0 - 3: 2.5% MACE over next 6 weeks - Discharge Home Score 4 - 6: 20.3% MACE over next 6 weeks - Admit for Clinical Observation Score 7 - 10: 72.7% MACE over next 6 weeks - Early Invasive Strategies Allergies: Allergies: Allergies Coded Allergies Type Severity Reaction Last Updated Verified No Known Drug Allergies 12/15/13 No Physical Exam: PE: Constitutional: Well developed, well nourished, no acute distress, non-toxic appearance. [] HENT: Normocephalic, atraumatic, bilateral external ears normal, oropharynx moist, no oral exudates, nose normal. [] Eyes: PERRLA, EOMI, conjunctiva normal, no discharge. [] Neck: Normal range of motion, no tenderness, supple, no stridor. [] Cardiovascular:Heart rate regular rhythm, no murmur [] Lungs & Thorax: Bilateral breath sounds clear to auscultation [] Abdomen: Bowel sounds normal, soft, no tenderness, no masses, no pulsatile masses. [] Skin: Warm, dry, no erythema, no rash. [] Back: No tenderness, no CVA tenderness. [] Extremities: No tenderness, no cyanosis, no clubbing, ROM intact, no edema, gait steady Neurologic: Alert and oriented X 2, normal motor function, normal sensory function, no focal deficits noted, patient is unable to tell this provider the month or how old the patient is, when asked about situational experiences patient has word finding issues, she forgets what she saying or jumps to another topic. Psychologic: Affect normal, judgement abnormal, mood normal. [] Current Patient Data: Labs: Laboratory Tests Test 07/05/21 12:45 07/05/21 12:53 Urine Collection Type Unknown Urine Color (Auto) Yellow Urine Turbidity Hazy Urine pH (Auto) 5.5 Urine Specific [place] 1.016 Urine Protein (Auto) Negative mg/dL Urine Glucose (Auto)(UA) Negative mg/dL Urine Ketones (Auto) Negative mg/dL Urine Blood (Auto) Negative Urine Nitrite Negative Urine Bilirubin (Auto) Negative Urine Urobilinogen (Auto) Normal mg/dL Urine Leukocyte Esterase (Auto) Negative Urine RBC 0 /HPF Urine WBC 0 /HPF Urine Squamous Epithelial Cells Few /LPF Urine Amorphous Sediment Present /HPF Urine Bacteria 0 /HPF Urine Mucus Slight /LPF Urine Opiates Screen Neg Urine Methadone Screen Neg Urine Barbiturates Neg Urine Phencyclidine Screen Neg Urine Amphetamine/Methamphetamine Neg Urine Benzodiazepines Screen Neg Urine Cocaine Screen Neg Urine Cannabinoids Screen Neg Urine Ethyl Alcohol Neg White Blood Count 9.3 x10^3/uL Red Blood Count 4.27 x10^6/uL Hemoglobin 13.9 g/dL Hematocrit 40.4 % Mean Corpuscular Volume 95 fL Mean Corpuscular Hemoglobin 33 pg Mean Corpuscular Hemoglobin Concent 34 g/dL Red Cell Distribution Width 13.4 % Platelet Count 407 x10^3/uL Neutrophils (%) (Auto) 70 % Lymphocytes (%) (Auto) 19 % Monocytes (%) (Auto) 9 % Eosinophils (%) (Auto) 1 % Basophils (%) (Auto) 1 % Neutrophils # (Auto) 6.5 x10^3/uL Lymphocytes # (Auto) 1.8 x10^3/uL Monocytes # (Auto) 0.8 x10^3/uL Eosinophils # (Auto) 0.1 x10^3/uL Basophils # (Auto) 0.1 x10^3/uL Sodium Level 138 mmol/L Potassium Level 3.6 mmol/L Chloride Level 105 mmol/L Carbon Dioxide Level 24 mmol/L Anion Gap 9 Blood Urea Nitrogen 10 mg/dL Creatinine 0.9 mg/dL Estimated GFR (Cockcroft-Gault) 65.5 BUN/Creatinine Ratio 11 Glucose Level 96 mg/dL Calcium Level 9.6 mg/dL Total Bilirubin 0.7 mg/dL Aspartate Amino Transf (AST/SGOT) 70 U/L Alanine Aminotransferase (ALT/SGPT) 86 U/L Alkaline Phosphatase 85 U/L Troponin I High Sensitivity 5 ng/L DM-Fdz-Q-Type Natriuretic Peptide 9 pg/mL Total Protein 8.8 g/dL Albumin 4.1 g/dL Albumin/Globulin Ratio 0.9 Vital Signs: Vital Signs Date Time Temp Pulse Resp B/P (MAP) Pulse Ox O2 Delivery O2 Flow Rate FiO2 07/05/21 13:30 86 132/84 (100) 97 Room Air 07/05/21 12:08 98.2 97 18 139/84 (102) 96 Room Air 98.2 Vital Signs Date Time Temp Pulse Resp B/P (MAP) Pulse Ox O2 Delivery O2 Flow Rate FiO2 5/9/22 12:08 98.2 97 18 139/84 (102) 96 Room Air 98.2 EKG: EKG: EKG done at [address] Nguyen at 1315 sinus rhythm at a rate of 85 with no ectopy at a WI interval of 128 ms with a QTC of 431 ms no STEMI [] Radiology/Procedures: Radiology/Procedures: REASON: change in mental status PROCEDURE: CT HEAD WO CONTRAST EXAMINATION: CT HEAD/BRAIN WO CLINICAL HISTORY: Change in mental status. TECHNIQUE: Serial axial images without IV contrast were obtained from the vertex to the foramen magnum. CT Dose Reduction Employed: One or more of the following individualized dose reduction techniques were utilized for this examination: 1. Automated exposure control 2. Adjustment of the mA and/or kV according to patient size 3. Use of iterative reconstruction technique. COMPARISON: None FINDINGS: Acute Change: No evidence of an acute infarct or other acute parenchymal process. Hemorrhage: No evidence of acute intracranial hemorrhage. Mass Lesion/Mass Effect: No evidence of intracranial mass or extraaxial fluid collection. No significant mass effect. Chronic Change: Scattered patchy foci of hypoattenuation in the supratentorial white matter, nonspecific but likely represents mild microvascular ischemia. Atherosclerotic calcification of the intracranial portion of the bilateral internal carotid arteries. Parenchyma: Mild to moderate generalized volume loss, asymmetrically prominent in the frontal lobes. Ventricles: Ventricular enlargement concordant with degree of parenchymal volume loss. Paranasal Sinuses and Skull Base: Moderate secretions in the partially visualized left maxillary sinus. Visualized skull base and soft tissues unremarkable. IMPRESSION: No evidence of acute intracranial abnormality. Left maxillary sinus disease. Electronically signed by: John Martínez DO (07/05/2021 1:56 PM) JUAN FRANCISCO REASON: change in mental status PROCEDURE: PORTABLE CHEST 1V EXAMINATION: XR CHEST 1V CLINICAL HISTORY: Change in mental status. EXAM DATE/TIME: 07/05/2021 1:11 PM COMPARISON: None FINDINGS: Lines, Tubes, and Devices: None. Cardiomediastinal Silhouette: Within normal limits. Lungs and Pleura: Pulmonary hypoexpansion without evidence of focal airspace consolidation or pleural effusion. Pulmonary vasculature unremarkable. Bones and Soft Tissues: Degenerative changes in the thoracic spine. IMPRESSION: No evidence of acute cardiopulmonary abnormality. Electronically signed by: John Martínez DO (07/05/2021 1:20 PM) JUAN FRANCISCO [] Course & Med Decision Making: Course & Med Decision Making Pertinent Labs and Imaging studies reviewed. (See chart for details) 5515 reassessment of patient patient continues to not be able to tell me how old she is or what month it is, I did speak with Dr. Hernandez with neurology services and he states to admit patient for further evaluation and management. Dr. Valverde has been paged. [phone] Valverde regarding this patient and he is agreed to admit this patient for further evaluation and management. He did request that an ammonia level be drawn for this patient. Dragon Disclaimer: [employer] Disclaimer: This electronic medical record was generated, in whole or in part, using a voice recognition dictation system. Departure Departure Impression: Primary Impression: Altered mental status Qualified Codes: R41.82 - Altered mental status, unspecified Disposition: ADMITTED INPATIENT Admitting Physician: RITU Condition: STABLE Referrals: Jose David RODRIGUEZ MD (PCP) NIHSS Stroke Scale NIH Stroke Scale: NIH Stroke Scale Response (Comments) Value Level of Consciousness: 0 Alert/Responsive 0 LOC Questions: 2 Answers neither correct 2 LOC Commands: 0 Performs both tasks 0 Best Gaze: 0 Normal 0 Visual: 0 No visual loss 0 Facial Palsy: 0 Normal, symmetrical 0 Motor - Left Arm 0 No drift 0 Motor - Right Arm 0 No drift 0 Motor - Left Leg 0 No drift 0 Motor: Right Leg 0 No drift 0 Limb Ataxia: 0 Absent 0 Sensory: 0 No loss 0 Best Language: 1 Mild to mod aphasia 1 Dysathria: 0 Normal 0 Extinction and Inattention: 0 Normal 0 Total 3 LEILANI MORALEZ APRN July 05, 2021 13:05
--- NOTE | 2021-07-05 13:22 | RAD ---
EXAMINATION: XR CHEST 1V CLINICAL HISTORY: Change in mental status. EXAM DATE/TIME: 07/05/2021 1:11 PM COMPARISON: None FINDINGS: Lines, Tubes, and Devices: None. Cardiomediastinal Silhouette: Within normal limits. Lungs and Pleura: Pulmonary hypoexpansion without evidence of focal airspace consolidation or pleural effusion. Pulmonary vasculature unremarkable. Bones and Soft Tissues: Degenerative changes in the thoracic spine. IMPRESSION: No evidence of acute cardiopulmonary abnormality. Electronically signed by: John Martínez DO (07/05/2021 1:20 PM) JUAN FRANCISCO
[2021-07-05 13:34] LABS: BASO # 0.1 x10^3/uL (0.0-0.2); BASO % 1 % (0-3); EOS # 0.1 x10^3/uL (0.0-0.7); EOS % 1 % (0-3); HEMATOCRIT 40.4 % (36.0-47.0); HEMOGLOBIN 13.9 g/dL (12.0-15.5); LYMPH # 1.8 x10^3/uL (1.0-4.8); LYMPH % 19 % (24-48); MEAN CORPUSCULAR HEMOGLOBIN 33 pg (25-35); MEAN CORPUSCULAR HGB CONC 34 g/dL (31-37); MEAN CORPUSCULAR VOLUME 95 fL (79-100); MONO # 0.8 x10^3/uL (0.0-1.1); MONO % 9 % (0-9); NEUT # 6.5 x10^3/uL (1.8-7.7); NEUT % 70 % (31-73); PLATELET COUNT 407 x10^3/uL (140-400); RED BLOOD COUNT 4.27 x10^6/uL (3.50-5.40); RED CELL DISTRIBUTION WIDTH 13.4 % (11.5-14.5); WHITE BLOOD COUNT 9.3 x10^3/uL (4.0-11.0)
[2021-07-05 13:42] LABS: CALCIUM 9.6 mg/dL (8.5-10.1); CREATININE 0.9 mg/dL (0.6-1.0); GFR 65.5; POTASSIUM 3.6 mmol/L (3.5-5.1)
[2021-07-05 13:44] LABS: BARBITURATES NEG (NEG); BENZODIAZEPINES NEG (NEG); CANNABINOIDS NEG (NEG); COCAINE NEG (NEG); METHADONE NEG (NEG); OPIATES NEG (NEG); PHENCYCLIDINE NEG (NEG)
[2021-07-05 13:45] LABS: AMPHETAMINE/METHAMPHETAMINE NEG (NEG)
[2021-07-05 13:48] LABS: ALBUMIN 4.1 g/dL (3.4-5.0); ALBUMIN/GLOBULIN RATIO 0.9 (1.0-1.7); TOTAL BILIRUBIN 0.7 mg/dL (0.2-1.0); TOTAL PROTEIN 8.8 g/dL (6.4-8.2)
[2021-07-05 13:50] LABS: AMORPHOUS SEDIMENT,UR PRESENT /HPF; BACTERIA,URINE 0 /HPF (0-FEW); RBC,URINE 0 /HPF (0-2); WBC,URINE 0 /HPF (0-4)
--- NOTE | 2021-07-05 13:58 | RAD ---
EXAMINATION: CT HEAD/BRAIN WO CLINICAL HISTORY: Change in mental status. TECHNIQUE: Serial axial images without IV contrast were obtained from the vertex to the foramen magnu m. CT Dose Reduction Employed: One or more of the following individualized dose reduction techniques elza e utilized for this examination: 1. Automated exposure control 2. Adjustment of the mA and/or kV ac cording to patient size 3. Use of iterative reconstruction technique. COMPARISON: None FINDINGS: Acute Change: No evidence of an acute infarct or other acute parenchymal process. Hemorrhage: No evidence of acute intracranial hemorrhage. Mass Lesion/Mass Effect: No evidence of intracranial mass or extraaxial fluid collection. No signific ant mass effect. Chronic Change: Scattered patchy foci of hypoattenuation in the supratentorial white matter, nonspeci fic but likely represents mild microvascular ischemia. Atherosclerotic calcification of the intracran ial portion of the bilateral internal carotid arteries. Parenchyma: Mild to moderate generalized volume loss, asymmetrically prominent in the frontal lobes. Ventricles: Ventricular enlargement concordant with degree of parenchymal volume loss. Paranasal Sinuses and Skull Base: Moderate secretions in the partially visualized left maxillary sinu s. Visualized skull base and soft tissues unremarkable. IMPRESSION: No evidence of acute intracranial abnormality. Left maxillary sinus disease. Electronically signed by: John Martínez DO (07/05/2021 1:56 PM) [facility]
[2021-07-05] MEDS ORDERED: LIDO:MAALOX 1:1 20 ML SINGLE DOSE. SWSW ONE (14:30)
--- NOTE | 2021-07-05 14:57 | EKG ---
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
--- NOTE | 2021-07-05 16:33 | PDOC2 ---
NEUROLOGY CONSULT Date of Service DOS: DATE: 07/05/21 TIME: 16:31 Reason for Consult Reason for Consult: altered mental status Referring Physician Referring Physician: Dr. Ortega Source Source: Caregiver (sister), Chart review, Patient History of Present Illness History of Present Illness The patient is a 55-year-old white female who presents in emergency department with mental status change. Patient has had cognitive problems often on for a year or two. FAWAD Alicia and myself saw her in the office on 03/25/20. 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 Indeed, the patient has gone through a lot of family stress. Most recently the left her three days ago because he couldn't deal with her cognitive issues. The patient has been on antidepressants in the past, most recently fluoxetine. There are no focal stroke symptoms. In the emergency department the patient could not tell her age, why she was there, and had trouble with naming Past Medical History Cardiovascular: HTN, Hyperlipidemia GI: GERD Psych: Depression, Other (ADD) Past Surgical History Past Surgical History: Other (lumbar laminectomy, brewast reduction, ORIF left ankle, lithotripsy, ganglion cyst) Family History Family History: Other (alchoholism, nervous breakdown) Social History Social History Merissa, as above, just left her, no alcohol or tobacco Current Medications Current Medications Current Medications Multi-Ingredient Mouthwash/Gargle (Gi Cocktail) 20 ml 1X ONCE SWSW Last administered on 07/05/21at 14:52; Start 07/05/21 at 14:30; Stop 07/05/21 at 14:31; Status DC Active Scripts Active Reported Lidocaine 1 Each Adh..patch 1 Each TP DAILY Zolpidem Tartrate Er (Zolpidem Tartrate) 12.5 Mg Tab.mphase 12.5 Mg PO PRN QHS PRN Naproxen 375 Mg Tablet 1 Tab PO DAILY Baclofen 10 Mg Tablet 1 Tab PO TID Effexor Xr (Venlafaxine Hcl) 37.5 Mg Cap.er.24h 1 Cap PO DAILY Ibuprofen 800 Mg Tablet 800 Mg PO PRN Q6HRS PRN Tramadol Hcl 50 Mg Tablet 50 Mg PO DAILY PRN No Known Medications Prior To Admisstion (Info) Each 1 Each MC Allergies Allergies: Coded Allergies: No Known Drug Allergies (Unverified , 12/15/13) ROS Review of System Negative for fever, chills, weight loss, shortness of breath, chest pain, indigestion, hematochezia, melena, and dysuria. Full 14-point review of systems is negative. Physical Exam Physical Examination General: Well-developed, well-nourished white female in no acute distress HEENT: Normocephalic andatraumatic. Temporal arteriespulsatile and nontender. Neck: Supple without bruit, no meningismus Musculoskeletal: Stability:see neurologic. Gait exam:see neurologic. Tone:see neurologic.Strength:see neurologic. Neurological: Mental Status:intact, orientation, memory, attention span/concentration, language, fund of knowledge normal. Cranial Nerves:Pupils equal and reactive to light, extraocular movements areintact, visual rolle are full to confrontation. Facial sensation is normal. There is no facial asymmetry. Vestibulo-ocular reflex is intact. Palate elevates and tongue protrudes in midline. All other cranial related problems are negative except as mentioned before.Reflexes:2+ and symmetric with flexor plantar responses. Motor:5/5 strength with normal tone and bulk. Coordination:Finger-nose finger and [id number] testing are normal. Rapid alternating movements and fine finger movements are intact. Gait:Normal, including tandem. Sensory:Normal pinprick, vibration, light touch, proprioception. Vitals VITALS Vital Signs Date Time Temp Pulse Resp B/P (MAP) Pulse Ox O2 Delivery O2 Flow Rate FiO2 07/05/21 15:23 90 158/83 (108) 96 Room Air 07/05/21 12:08 98.2 18 98.2 Labs Labs Laboratory Tests Test 07/05/21 12:45 07/05/21 12:53 07/05/21 15:05 Urine Collection Type Unknown Urine Color (Auto) Yellow Urine Turbidity Hazy Urine pH (Auto) 5.5 (<5.0-8.0) Urine Specific [place] 1.016 (1.000-1.030) Urine Protein (Auto) Negative mg/dL (Negative) Urine Glucose (Auto)(UA) Negative mg/dL (Negative) Urine Ketones (Auto) Negative mg/dL (Negative) Urine Blood (Auto) Negative (Negative) Urine Nitrite Negative (Negative) Urine Bilirubin (Auto) Negative (Negative) Urine Urobilinogen (Auto) Normal mg/dL (Normal) Urine Leukocyte Esterase (Auto) Negative (Negative) Urine RBC 0 /HPF (0-2) Urine WBC 0 /HPF (0-4) Urine Squamous Epithelial Cells Few /LPF Urine Amorphous Sediment Present /HPF Urine Bacteria 0 /HPF (0-FEW) Urine Mucus Slight /LPF Urine Opiates Screen Neg (NEG) Urine Methadone Screen Neg (NEG) Urine Barbiturates Neg (NEG) Urine Phencyclidine Screen Neg (NEG) Urine Amphetamine/Methamphetamine Neg (NEG) Urine Benzodiazepines Screen Neg (NEG) Urine Cocaine Screen Neg (NEG) Urine Cannabinoids Screen Neg (NEG) Urine Ethyl Alcohol Neg (NEG) White Blood Count 9.3 x10^3/uL (4.0-11.0) Red Blood Count 4.27 x10^6/uL (3.50-5.40) Hemoglobin 13.9 g/dL (12.0-15.5) Hematocrit 40.4 % (36.0-47.0) Mean Corpuscular Volume 95 fL (79-100) Mean Corpuscular Hemoglobin 33 pg (25-35) Mean Corpuscular Hemoglobin Concent 34 g/dL (31-37) Red Cell Distribution Width 13.4 % (11.5-14.5) Platelet Count 407 x10^3/uL (140-400) Neutrophils (%) (Auto) 70 % (31-73) Lymphocytes (%) (Auto) 19 % (24-48) Monocytes (%) (Auto) 9 % (0-9) Eosinophils (%) (Auto) 1 % (0-3) Basophils (%) (Auto) 1 % (0-3) Neutrophils # (Auto) 6.5 x10^3/uL (1.8-7.7) Lymphocytes # (Auto) 1.8 x10^3/uL (1.0-4.8) Monocytes # (Auto) 0.8 x10^3/uL (0.0-1.1) Eosinophils # (Auto) 0.1 x10^3/uL (0.0-0.7) Basophils # (Auto) 0.1 x10^3/uL (0.0-0.2) Sodium Level 138 mmol/L (136-145) Potassium Level 3.6 mmol/L (3.5-5.1) Chloride Level 105 mmol/L (98-107) Carbon Dioxide Level 24 mmol/L (21-32) Anion Gap 9 (6-14) Blood Urea Nitrogen 10 mg/dL (7-20) Creatinine 0.9 mg/dL (0.6-1.0) Estimated GFR (Cockcroft-Gault) 65.5 BUN/Creatinine Ratio 11 (6-20) Glucose Level 96 mg/dL (70-99) Calcium Level 9.6 mg/dL (8.5-10.1) Total Bilirubin 0.7 mg/dL (0.2-1.0) Aspartate Amino Transf (AST/SGOT) 70 U/L (15-37) Alanine Aminotransferase (ALT/SGPT) 86 U/L (14-59) Alkaline Phosphatase 85 U/L (46-116) Troponin I High Sensitivity 5 ng/L (4-50) RA-Kap-K-Type Natriuretic Peptide 9 pg/mL (0-124) Total Protein 8.8 g/dL (6.4-8.2) Albumin 4.1 g/dL (3.4-5.0) Albumin/Globulin Ratio 0.9 (1.0-1.7) Ammonia < 10 mcmol/L (11-34) Laboratory Tests Test 07/05/21 12:45 07/05/21 12:53 07/05/21 15:05 Urine Collection Type Unknown Urine Color (Auto) Yellow Urine Turbidity Hazy Urine pH (Auto) 5.5 (<5.0-8.0) Urine Specific [place] 1.016 (1.000-1.030) Urine Protein (Auto) Negative mg/dL (Negative) Urine Glucose (Auto)(UA) Negative mg/dL (Negative) Urine Ketones (Auto) Negative mg/dL (Negative) Urine Blood (Auto) Negative (Negative) Urine Nitrite Negative (Negative) Urine Bilirubin (Auto) Negative (Negative) Urine Urobilinogen (Auto) Normal mg/dL (Normal) Urine Leukocyte Esterase (Auto) Negative (Negative) Urine RBC 0 /HPF (0-2) Urine WBC 0 /HPF (0-4) Urine Squamous Epithelial Cells Few /LPF Urine Amorphous Sediment Present /HPF Urine Bacteria 0 /HPF (0-FEW) Urine Mucus Slight /LPF Urine Opiates Screen Neg (NEG) Urine Methadone Screen Neg (NEG) Urine Barbiturates Neg (NEG) Urine Phencyclidine Screen Neg (NEG) Urine Amphetamine/Methamphetamine Neg (NEG) Urine Benzodiazepines Screen Neg (NEG) Urine Cocaine Screen Neg (NEG) Urine Cannabinoids Screen Neg (NEG) Urine Ethyl Alcohol Neg (NEG) White Blood Count 9.3 x10^3/uL (4.0-11.0) Red Blood Count 4.27 x10^6/uL (3.50-5.40) Hemoglobin 13.9 g/dL (12.0-15.5) Hematocrit 40.4 % (36.0-47.0) Mean Corpuscular Volume 95 fL (79-100) Mean Corpuscular Hemoglobin 33 pg (25-35) Mean Corpuscular Hemoglobin Concent 34 g/dL (31-37) Red Cell Distribution Width 13.4 % (11.5-14.5) Platelet Count 407 x10^3/uL (140-400) Neutrophils (%) (Auto) 70 % (31-73) Lymphocytes (%) (Auto) 19 % (24-48) Monocytes (%) (Auto) 9 % (0-9) Eosinophils (%) (Auto) 1 % (0-3) Basophils (%) (Auto) 1 % (0-3) Neutrophils # (Auto) 6.5 x10^3/uL (1.8-7.7) Lymphocytes # (Auto) 1.8 x10^3/uL (1.0-4.8) Monocytes # (Auto) 0.8 x10^3/uL (0.0-1.1) Eosinophils # (Auto) 0.1 x10^3/uL (0.0-0.7) Basophils # (Auto) 0.1 x10^3/uL (0.0-0.2) Sodium Level 138 mmol/L (136-145) Potassium Level 3.6 mmol/L (3.5-5.1) Chloride Level 105 mmol/L (98-107) Carbon Dioxide Level 24 mmol/L (21-32) Anion Gap 9 (6-14) Blood Urea Nitrogen 10 mg/dL (7-20) Creatinine 0.9 mg/dL (0.6-1.0) Estimated GFR (Cockcroft-Gault) 65.5 BUN/Creatinine Ratio 11 (6-20) Glucose Level 96 mg/dL (70-99) Calcium Level 9.6 mg/dL (8.5-10.1) Total Bilirubin 0.7 mg/dL (0.2-1.0) Aspartate Amino Transf (AST/SGOT) 70 U/L (15-37) Alanine Aminotransferase (ALT/SGPT) 86 U/L (14-59) Alkaline Phosphatase 85 U/L (46-116) Troponin I High Sensitivity 5 ng/L (4-50) NF-Qht-G-Type Natriuretic Peptide 9 pg/mL (0-124) Total Protein 8.8 g/dL (6.4-8.2) Albumin 4.1 g/dL (3.4-5.0) Albumin/Globulin Ratio 0.9 (1.0-1.7) Ammonia < 10 mcmol/L (11-34) Images Images CT HEAD/BRAIN WO CLINICAL HISTORY: Change in mental status. TECHNIQUE: Serial axial images without IV contrast were obtained from the vertex to the foramen magnum. CT Dose Reduction Employed: One or more of the following individualized dose reduction techniques were utilized for this examination: 1. Automated exposure control 2. Adjustment of the mA and/or kV according to patient size 3. Use of iterative reconstruction technique. COMPARISON: None FINDINGS: Acute Change: No evidence of an acute infarct or other acute parenchymal process. Hemorrhage: No evidence of acute intracranial hemorrhage. Mass Lesion/Mass Effect: No evidence of intracranial mass or extraaxial fluid collection. No significant mass effect. Chronic Change: Scattered patchy foci of hypoattenuation in the supratentorial white matter, nonspecific but likely represents mild microvascular ischemia. Atherosclerotic calcification of the intracranial portion of the bilateral internal carotid arteries. Parenchyma: Mild to moderate generalized volume loss, asymmetrically prominent in the frontal lobes. Ventricles: Ventricular enlargement concordant with degree of parenchymal volume loss. Paranasal Sinuses and Skull Base: Moderate secretions in the partially visualized left maxillary sinus. Visualized skull base and soft tissues unremarkable. IMPRESSION: No evidence of acute intracranial abnormality. Left maxillary sinus disease. 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 Recommendations: Speech/cognitive therapy. Resume fluoxetine 40 mg daily PAT team Hold on MRI and other stroke studies Discussed with patient and sister. Thank you for letting me help with the patient's care. LE ALFARO MD July 05, 2021 16:33
[2021-07-05] MEDS ORDERED: ACETAMINOPHEN 325 MG TABLET. PO PRN (17:15)
[2021-07-05] MEDS ORDERED: traZODone 50 MG TABLET. PO PRN (17:15)
[2021-07-05] MEDS ORDERED: ONDANSETRON PF 4 MG/2 ML VIAL. IVP PRN (17:15)
--- NOTE | 2021-07-05 17:45 | PDOC1 ---
History and Physical Date of Admission Date of Admission DATE: 07/05/21 TIME: 17:08 Identification/Chief Complaint Chief Complaint Confusion Source Source: Patient History of Present Illness History of Present Illness Ms Garcia is a 55yo female with PMHx nephrolithiasis, JESUS on CPAP who comes to ED accompanied by her sister with progressive confusion. She is having word finding difficulty and frequently loses track of what she is doing. She is still driving regularly but frequently drives to the location does not know why she went there. The real reason she is the ED currently is because she stopped at her mother's today and did not intend to and her mother contacted the sister. He had significant marital stressors that have come to the point of interfering with her work and she has been so forgetful that her house is about to be foreclosed upon (per sister). She has been 7 years and has been legally and is going through finalization of divorce soon. left her on Monday to go to [place]. She has not any complaints of dysuria no change of bowel habits. She is very anxious and struggles with depression no suicidal thoughts. She has low energy and has significant variability in her sleep most the time she cannot motivate herself to get out of bed. No recent travel or sick contacts. EKG sinus rate 85 bpm leftward axis otherwise normal intervals, QTC 431. Chest radiograph with no acute findings. CT head noncontrast with no acute intracranial hemorrhage no other findings acutely. WBC 9.3, Hb 13.9, platelets 407, NA 138, K3.6, BUN 10, CR 0.9, glucose 96, calcium 9.6, bilirubin 0.7, AST 70, ALT 86, alkaline phosphatase 85, ammonia less than 10, NT proBNP 9, albumin 4.1, high-sensitivity troponin is 5, urine drug screen negative, urinalysis bland. Past Medical History Cardiovascular: HTN, Hyperlipidemia GI: GERD Psych: Depression, Other (ADD) Past Surgical History Past Surgical History Lumbar laminectomy, breast reduction, ORIF left ankle, lithotripsy for nephrolithiasis, ganglion cyst removal Past Surgical History: Other (lumbar laminectomy, brewast reduction, ORIF left ankle, lithotripsy, ganglion cyst) Social History Smoke: No ALCOHOL: none Drugs: None Current Problem List Problem List Problems Medical Problems: (1) Altered mental status Status: Acute Current Medications Current Medications Current Medications Multi-Ingredient Mouthwash/Gargle (Gi Cocktail) 20 ml 1X ONCE SWSW Last administered on 07/05/21at 14:52; Start 07/05/21 at 14:30; Stop 07/05/21 at 14:31; Status DC Fluoxetine HCl (PROzac) 40 mg DAILY PO ; Start 07/06/21 at 09:00 Active Scripts Active Reported Lidocaine 1 Each Adh..patch 1 Each TP DAILY Zolpidem Tartrate Er (Zolpidem Tartrate) 12.5 Mg Tab.mphase 12.5 Mg PO PRN QHS PRN Naproxen 375 Mg Tablet 1 Tab PO DAILY Baclofen 10 Mg Tablet 1 Tab PO TID Effexor Xr (Venlafaxine Hcl) 37.5 Mg Cap.er.24h 1 Cap PO DAILY Ibuprofen 800 Mg Tablet 800 Mg PO PRN Q6HRS PRN Tramadol Hcl 50 Mg Tablet 50 Mg PO DAILY PRN No Known Medications Prior To Admisstion (Info) Each 1 Each MC Allergies Allergies: Coded Allergies: No Known Drug Allergies (Unverified , 12/15/13) ROS General: YES: Fatigue, Malaise; No: Chills, Night Sweats, Appetite, Other PSYCHOLOGICAL ROS: YES: Anxiety, Concentration difficultie, Decreased libido, Depression, Disorientation, Irritablity, Memory difficulties, Mood Swings, Obsessive thoughts, Sleep disturbances; No: Behavioral Disorder, Hallucinations, Hostility, Physical abuse, Sexual abuse, Suicidal ideation, Other Eyes: No Blurry vision, No Decreased vision, No Double vision, No Dry eyes, No Excessive tearing, No Eye Pain, No Itchy Eyes, No Loss of vision, No Photophobia, No Scotomata, No Uses contacts, No Uses glasses, No Other HEENT: No: Heacaches, Visual Changes, Hearing change, Nasal congestion, Nasal discharge, Oral lesions, Sinus pain, Sore Throat, Epistaxis, Sneezing, Snoring, Tinnitus, Vertigo, Vocal changes, Other ALLERGY AND IMMUNOLOGY: No: Hives, Insect Bite Sensitivity, Itchy/Watery Eyes, Nasal Congestion, Post Nasal Drip, Seasonal Allergies, Other Hematological and Lymphatic: No: Bleeding Problems, Blood Clots, Blood Transfusions, Brusing, Night Sweats, Pallor, Swollen Lymph Nodes, Other ENDOCRINE: No: Breast Changes, Galactorrhea, Hair Pattern Changes, Hot Flashes, Malaise/lethargy, Mood Swings, Palpitations, Polydipsia/polyuria, Skin Changes, Temperature Intolerance, Unexpected Weight Changes, Other Breast: No New/Changing Breast Lumps, No Nipple changes, No Nipple discharge, No Other Respiratory: No: Cough, Hemoptysis, Orthopnea, Pleuritic Pain, Shortness of breath, SOB with excertion, Sputum Changes, Stridor, Tachypnea, Wheezing, Other Cardiovascular: No Chest Pain, No Palpitations, No Orthopnea, No Paroxysmal Noc. Dyspnea, No Edema, No Lt Headedness, No Other Gastrointestinal: No Nausea, No Vomiting, No Abdominal Pain, No Diarrhea, No Constipation, No Melena, No Hematochezia, No Other Genitourinary: No Dysuria, No Frequency, No Incontinence, No Hematuria, No Retention, No Discharge, No Urgency, No Pain, No Flank Pain, No Other, No , No , No , No , No , No , No Musculoskeletal: No Gait Disturbance, No Joint Pain, No Joint Stiffness, No Joint Swelling, No Muscle Pain, No Muscular Weakness, No Pain In:, No Swelling In:, No Other Neurological: Yes Behavorial Changes, Yes Memory Loss; No Bowel/Bladder ControlChng, No Confusion, No Dizziness, No Gait Disturbance, No Headaches, No Impaired Coord/balance, No Numbness/Tingling, No Seizures, No Speech Problems, No Tremors, No Visual Changes, No Weakness, No Other Skin: No Dry Skin, No Eczema, No Hair Changes, No Lumps, No Mole Changes, No Mottling, No Nail Changes, No Pruritus, No Rash, No Skin Lesion Changes, No Other, No Acne Vitals Vitals Vital Signs Date Time Temp Pulse Resp B/P (MAP) Pulse Ox O2 Delivery O2 Flow Rate FiO2 07/05/21 15:23 90 158/83 (108) 96 Room Air 07/05/21 12:08 98.2 18 98.2 Labs Labs Laboratory Tests Test 07/05/21 12:45 07/05/21 12:53 07/05/21 15:05 Urine Collection Type Unknown Urine Color (Auto) Yellow Urine Turbidity Hazy Urine pH (Auto) 5.5 (<5.0-8.0) Urine Specific [place] 1.016 (1.000-1.030) Urine Protein (Auto) Negative mg/dL (Negative) Urine Glucose (Auto)(UA) Negative mg/dL (Negative) Urine Ketones (Auto) Negative mg/dL (Negative) Urine Blood (Auto) Negative (Negative) Urine Nitrite Negative (Negative) Urine Bilirubin (Auto) Negative (Negative) Urine Urobilinogen (Auto) Normal mg/dL (Normal) Urine Leukocyte Esterase (Auto) Negative (Negative) Urine RBC 0 /HPF (0-2) Urine WBC 0 /HPF (0-4) Urine Squamous Epithelial Cells Few /LPF Urine Amorphous Sediment Present /HPF Urine Bacteria 0 /HPF (0-FEW) Urine Mucus Slight /LPF Urine Opiates Screen Neg (NEG) Urine Methadone Screen Neg (NEG) Urine Barbiturates Neg (NEG) Urine Phencyclidine Screen Neg (NEG) Urine Amphetamine/Methamphetamine Neg (NEG) Urine Benzodiazepines Screen Neg (NEG) Urine Cocaine Screen Neg (NEG) Urine Cannabinoids Screen Neg (NEG) Urine Ethyl Alcohol Neg (NEG) White Blood Count 9.3 x10^3/uL (4.0-11.0) Red Blood Count 4.27 x10^6/uL (3.50-5.40) Hemoglobin 13.9 g/dL (12.0-15.5) Hematocrit 40.4 % (36.0-47.0) Mean Corpuscular Volume 95 fL (79-100) Mean Corpuscular Hemoglobin 33 pg (25-35) Mean Corpuscular Hemoglobin Concent 34 g/dL (31-37) Red Cell Distribution Width 13.4 % (11.5-14.5) Platelet Count 407 x10^3/uL (140-400) Neutrophils (%) (Auto) 70 % (31-73) Lymphocytes (%) (Auto) 19 % (24-48) Monocytes (%) (Auto) 9 % (0-9) Eosinophils (%) (Auto) 1 % (0-3) Basophils (%) (Auto) 1 % (0-3) Neutrophils # (Auto) 6.5 x10^3/uL (1.8-7.7) Lymphocytes # (Auto) 1.8 x10^3/uL (1.0-4.8) Monocytes # (Auto) 0.8 x10^3/uL (0.0-1.1) Eosinophils # (Auto) 0.1 x10^3/uL (0.0-0.7) Basophils # (Auto) 0.1 x10^3/uL (0.0-0.2) Sodium Level 138 mmol/L (136-145) Potassium Level 3.6 mmol/L (3.5-5.1) Chloride Level 105 mmol/L (98-107) Carbon Dioxide Level 24 mmol/L (21-32) Anion Gap 9 (6-14) Blood Urea Nitrogen 10 mg/dL (7-20) Creatinine 0.9 mg/dL (0.6-1.0) Estimated GFR (Cockcroft-Gault) 65.5 BUN/Creatinine Ratio 11 (6-20) Glucose Level 96 mg/dL (70-99) Calcium Level 9.6 mg/dL (8.5-10.1) Total Bilirubin 0.7 mg/dL (0.2-1.0) Aspartate Amino Transf (AST/SGOT) 70 U/L (15-37) Alanine Aminotransferase (ALT/SGPT) 86 U/L (14-59) Alkaline Phosphatase 85 U/L (46-116) Troponin I High Sensitivity 5 ng/L (4-50) JF-Iao-S-Type Natriuretic Peptide 9 pg/mL (0-124) Total Protein 8.8 g/dL (6.4-8.2) Albumin 4.1 g/dL (3.4-5.0) Albumin/Globulin Ratio 0.9 (1.0-1.7) Ammonia < 10 mcmol/L (11-34) Laboratory Tests Test 07/05/21 12:45 07/05/21 12:53 07/05/21 15:05 Urine Collection Type Unknown Urine Color (Auto) Yellow Urine Turbidity Hazy Urine pH (Auto) 5.5 (<5.0-8.0) Urine Specific [place] 1.016 (1.000-1.030) Urine Protein (Auto) Negative mg/dL (Negative) Urine Glucose (Auto)(UA) Negative mg/dL (Negative) Urine Ketones (Auto) Negative mg/dL (Negative) Urine Blood (Auto) Negative (Negative) Urine Nitrite Negative (Negative) Urine Bilirubin (Auto) Negative (Negative) Urine Urobilinogen (Auto) Normal mg/dL (Normal) Urine Leukocyte Esterase (Auto) Negative (Negative) Urine RBC 0 /HPF (0-2) Urine WBC 0 /HPF (0-4) Urine Squamous Epithelial Cells Few /LPF Urine Amorphous Sediment Present /HPF Urine Bacteria 0 /HPF (0-FEW) Urine Mucus Slight /LPF Urine Opiates Screen Neg (NEG) Urine Methadone Screen Neg (NEG) Urine Barbiturates Neg (NEG) Urine Phencyclidine Screen Neg (NEG) Urine Amphetamine/Methamphetamine Neg (NEG) Urine Benzodiazepines Screen Neg (NEG) Urine Cocaine Screen Neg (NEG) Urine Cannabinoids Screen Neg (NEG) Urine Ethyl Alcohol Neg (NEG) White Blood Count 9.3 x10^3/uL (4.0-11.0) Red Blood Count 4.27 x10^6/uL (3.50-5.40) Hemoglobin 13.9 g/dL (12.0-15.5) Hematocrit 40.4 % (36.0-47.0) Mean Corpuscular Volume 95 fL (79-100) Mean Corpuscular Hemoglobin 33 pg (25-35) Mean Corpuscular Hemoglobin Concent 34 g/dL (31-37) Red Cell Distribution Width 13.4 % (11.5-14.5) Platelet Count 407 x10^3/uL (140-400) Neutrophils (%) (Auto) 70 % (31-73) Lymphocytes (%) (Auto) 19 % (24-48) Monocytes (%) (Auto) 9 % (0-9) Eosinophils (%) (Auto) 1 % (0-3) Basophils (%) (Auto) 1 % (0-3) Neutrophils # (Auto) 6.5 x10^3/uL (1.8-7.7) Lymphocytes # (Auto) 1.8 x10^3/uL (1.0-4.8) Monocytes # (Auto) 0.8 x10^3/uL (0.0-1.1) Eosinophils # (Auto) 0.1 x10^3/uL (0.0-0.7) Basophils # (Auto) 0.1 x10^3/uL (0.0-0.2) Sodium Level 138 mmol/L (136-145) Potassium Level 3.6 mmol/L (3.5-5.1) Chloride Level 105 mmol/L (98-107) Carbon Dioxide Level 24 mmol/L (21-32) Anion Gap 9 (6-14) Blood Urea Nitrogen 10 mg/dL (7-20) Creatinine 0.9 mg/dL (0.6-1.0) Estimated GFR (Cockcroft-Gault) 65.5 BUN/Creatinine Ratio 11 (6-20) Glucose Level 96 mg/dL (70-99) Calcium Level 9.6 mg/dL (8.5-10.1) Total Bilirubin 0.7 mg/dL (0.2-1.0) Aspartate Amino Transf (AST/SGOT) 70 U/L (15-37) Alanine Aminotransferase (ALT/SGPT) 86 U/L (14-59) Alkaline Phosphatase 85 U/L (46-116) Troponin I High Sensitivity 5 ng/L (4-50) KO-Rvz-U-Type Natriuretic Peptide 9 pg/mL (0-124) Total Protein 8.8 g/dL (6.4-8.2) Albumin 4.1 g/dL (3.4-5.0) Albumin/Globulin Ratio 0.9 (1.0-1.7) Ammonia < 10 mcmol/L (11-34) Images Images CT HEAD/BRAIN WO CLINICAL HISTORY: Change in mental status. TECHNIQUE: Serial axial images without IV contrast were obtained from the vertex to the foramen magnum. CT Dose Reduction Employed: One or more of the following individualized dose reduction techniques were utilized for this examination: 1. Automated exposure control 2. Adjustment of the mA and/or kV according to patient size 3. Use of iterative reconstruction technique. COMPARISON: None FINDINGS: Acute Change: No evidence of an acute infarct or other acute parenchymal process. Hemorrhage: No evidence of acute intracranial hemorrhage. Mass Lesion/Mass Effect: No evidence of intracranial mass or extraaxial fluid collection. No significant mass effect. Chronic Change: Scattered patchy foci of hypoattenuation in the supratentorial white matter, nonspecific but likely represents mild microvascular ischemia. Atherosclerotic calcification of the intracranial portion of the bilateral internal carotid arteries. Parenchyma: Mild to moderate generalized volume loss, asymmetrically prominent in the frontal lobes. Ventricles: Ventricular enlargement concordant with degree of parenchymal volume loss. Paranasal Sinuses and Skull Base: Moderate secretions in the partially visualized left maxillary sinus. Visualized skull base and soft tissues unremarkable. IMPRESSION: No evidence of acute intracranial abnormality. Left maxillary sinus disease. XR CHEST 1V CLINICAL HISTORY: Change in mental status. EXAM DATE/TIME: 07/05/2021 1:11 PM COMPARISON: None FINDINGS: Lines, Tubes, and Devices: None. Cardiomediastinal Silhouette: Within normal limits. Lungs and Pleura: Pulmonary hypoexpansion without evidence of focal airspace consolidation or pleural effusion. Pulmonary vasculature unremarkable. Bones and Soft Tissues: Degenerative changes in the thoracic spine. IMPRESSION: No evidence of acute cardiopulmonary abnormality. VTE Prophylaxis Ordered VTE Prophylaxis Devices: No VTE Pharmacological Prophylaxi: No Assessment/Plan Assessment/Plan Confusion -no clear metabolic cause. will add on syphilis testing, CRP, CONNER. This could be complicated depression possible conversion disorder. She does have a family history of dementia be very early onset. has seen neurology outpatient but to me she cannot recall this. Transaminitis - will check TSH, hepatitis profile JESUS on CPAP - continue while inpatient Depression - with anxiety. Not taking any meds. Is complicated by major life stressors going through marital separation. Expressive aphasia -not always consistently having word finding difficulty. N eurology consulted speech-language pathology, she absolutely could benefit from this FEN - regular diet PPX - ambulatory FULL CODE Dispo - observation Justifications for Admission Other Justification DANAY DUEÑAS MD July 05, 2021 17:45
[2021-07-05] MEDS: PANTOPRAZOLE 40 MG TABLET.DR. PO SCH (17:48)
[2021-07-05 18:28] VITALS: BP 130/94
[2021-07-05] MEDS ORDERED: busPIRone 10 MG TABLET. PO PRN (19:15)
[2021-07-05 19:32] VITALS: BP 138/86
[2021-07-05 22:49] VITALS: BP 112/71
[2021-07-06 02:38] VITALS: BP 115/72
[2021-07-06 07:00] VITALS: BP 128/91
[2021-07-06] MEDS ORDERED: FLUoxetine HCL 20 MG CAPSULE PO SCH (09:00)
[2021-07-06] MEDS: PANTOPRAZOLE 40 MG TABLET.DR. PO SCH ×2 (09:19→17:30)
--- NOTE | 2021-07-06 10:06 | PDOC ---
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 Plan Speech/cognitive therapy. 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 Subjective Denies headache Objective Vital Signs Date Time Temp Pulse Resp B/P (MAP) Pulse Ox O2 Delivery O2 Flow Rate FiO2 07/06/21 08:00 Room Air 07/06/21 07:00 98.1 89 17 128/91 (103) 96 98.1 Intake and Output 07/06/21 07:00 Intake Total 100 ml Balance 100 ml Intake Oral 100 ml # Voids 1 PHYSICAL EXAM Alert. Is distraught, just talked to who wants to divorce her. She answers "I do not kno" when asked date and location, does not make an effort to come up with answers. PERRL. EOMI. CN: no focal findings. Muscle tone: normal. Muscle strength: 5/5 DTR: 2+ Plantar reflex: Flexor Gait: Normal Sensory exam: no abnormal findings. No cerebellar signs elicited. Review of Relevant I have reviewed the following items robbie (where applicable) has been applied. Labs Laboratory Tests Test 07/05/21 12:45 07/05/21 12:53 07/05/21 15:05 07/05/21 17:48 Urine Collection Type Unknown Urine Color (Auto) Yellow Urine Turbidity Hazy Urine pH (Auto) 5.5 (<5.0-8.0) Urine Specific [place] 1.016 (1.000-1.030) Urine Protein (Auto) Negative mg/dL (Negative) Urine Glucose (Auto)(UA) Negative mg/dL (Negative) Urine Ketones (Auto) Negative mg/dL (Negative) Urine Blood (Auto) Negative (Negative) Urine Nitrite Negative (Negative) Urine Bilirubin (Auto) Negative (Negative) Urine Urobilinogen (Auto) Normal mg/dL (Normal) Urine Leukocyte Esterase (Auto) Negative (Negative) Urine RBC 0 /HPF (0-2) Urine WBC 0 /HPF (0-4) Urine Squamous Epithelial Cells Few /LPF Urine Amorphous Sediment Present /HPF Urine Bacteria 0 /HPF (0-FEW) Urine Mucus Slight /LPF Urine Opiates Screen Neg (NEG) Urine Methadone Screen Neg (NEG) Urine Barbiturates Neg (NEG) Urine Phencyclidine Screen Neg (NEG) Urine Amphetamine/Methamphetamine Neg (NEG) Urine Benzodiazepines Screen Neg (NEG) Urine Cocaine Screen Neg (NEG) Urine Cannabinoids Screen Neg (NEG) Urine Ethyl Alcohol Neg (NEG) White Blood Count 9.3 x10^3/uL (4.0-11.0) Red Blood Count 4.27 x10^6/uL (3.50-5.40) Hemoglobin 13.9 g/dL (12.0-15.5) Hematocrit 40.4 % (36.0-47.0) Mean Corpuscular Volume 95 fL (79-100) Mean Corpuscular Hemoglobin 33 pg (25-35) Mean Corpuscular Hemoglobin Concent 34 g/dL (31-37) Red Cell Distribution Width 13.4 % (11.5-14.5) Platelet Count 407 x10^3/uL (140-400) Neutrophils (%) (Auto) 70 % (31-73) Lymphocytes (%) (Auto) 19 % (24-48) Monocytes (%) (Auto) 9 % (0-9) Eosinophils (%) (Auto) 1 % (0-3) Basophils (%) (Auto) 1 % (0-3) Neutrophils # (Auto) 6.5 x10^3/uL (1.8-7.7) Lymphocytes # (Auto) 1.8 x10^3/uL (1.0-4.8) Monocytes # (Auto) 0.8 x10^3/uL (0.0-1.1) Eosinophils # (Auto) 0.1 x10^3/uL (0.0-0.7) Basophils # (Auto) 0.1 x10^3/uL (0.0-0.2) Sodium Level 138 mmol/L (136-145) Potassium Level 3.6 mmol/L (3.5-5.1) Chloride Level 105 mmol/L (98-107) Carbon Dioxide Level 24 mmol/L (21-32) Anion Gap 9 (6-14) Blood Urea Nitrogen 10 mg/dL (7-20) Creatinine 0.9 mg/dL (0.6-1.0) Estimated GFR (Cockcroft-Gault) 65.5 BUN/Creatinine Ratio 11 (6-20) Glucose Level 96 mg/dL (70-99) Calcium Level 9.6 mg/dL (8.5-10.1) Total Bilirubin 0.7 mg/dL (0.2-1.0) Aspartate Amino Transf (AST/SGOT) 70 U/L (15-37) Alanine Aminotransferase (ALT/SGPT) 86 U/L (14-59) Alkaline Phosphatase 85 U/L (46-116) Troponin I High Sensitivity 5 ng/L (4-50) C-Reactive Protein, Quantitative 11.6 mg/L (0-3.3) FH-Dzs-S-Type Natriuretic Peptide 9 pg/mL (0-124) Total Protein 8.8 g/dL (6.4-8.2) Albumin 4.1 g/dL (3.4-5.0) Albumin/Globulin Ratio 0.9 (1.0-1.7) Treponema pallidum Antibody Nonreactive (Nonreactive) Ammonia < 10 mcmol/L (11-34) Hepatitis A IgM Antibody Nonreactive (Nonreactive) Hepatitis B Surface Antigen Nonreactive (Nonreactive) Hepatitis B Core IgM Antibody Nonreactive (Nonreactive) Hepatitis C IgG Antibody Nonreactive (Nonreactive) Test 07/06/21 04:55 Erythrocyte Sedimentation Rate 53 (0-25) Vitamin B12 Level 406 pg/mL (247-911) Thyroid Stimulating Hormone (TSH) 0.958 uIU/mL (0.358-3.74) Laboratory Tests Test 07/05/21 12:45 07/05/21 12:53 07/05/21 15:05 07/05/21 17:48 Urine Collection Type Unknown Urine Color (Auto) Yellow Urine Turbidity Hazy Urine pH (Auto) 5.5 (<5.0-8.0) Urine Specific [place] 1.016 (1.000-1.030) Urine Protein (Auto) Negative mg/dL (Negative) Urine Glucose (Auto)(UA) Negative mg/dL (Negative) Urine Ketones (Auto) Negative mg/dL (Negative) Urine Blood (Auto) Negative (Negative) Urine Nitrite Negative (Negative) Urine Bilirubin (Auto) Negative (Negative) Urine Urobilinogen (Auto) Normal mg/dL (Normal) Urine Leukocyte Esterase (Auto) Negative (Negative) Urine RBC 0 /HPF (0-2) Urine WBC 0 /HPF (0-4) Urine Squamous Epithelial Cells Few /LPF Urine Amorphous Sediment Present /HPF Urine Bacteria 0 /HPF (0-FEW) Urine Mucus Slight /LPF Urine Opiates Screen Neg (NEG) Urine Methadone Screen Neg (NEG) Urine Barbiturates Neg (NEG) Urine Phencyclidine Screen Neg (NEG) Urine Amphetamine/Methamphetamine Neg (NEG) Urine Benzodiazepines Screen Neg (NEG) Urine Cocaine Screen Neg (NEG) Urine Cannabinoids Screen Neg (NEG) Urine Ethyl Alcohol Neg (NEG) White Blood Count 9.3 x10^3/uL (4.0-11.0) Red Blood Count 4.27 x10^6/uL (3.50-5.40) Hemoglobin 13.9 g/dL (12.0-15.5) Hematocrit 40.4 % (36.0-47.0) Mean Corpuscular Volume 95 fL (79-100) Mean Corpuscular Hemoglobin 33 pg (25-35) Mean Corpuscular Hemoglobin Concent 34 g/dL (31-37) Red Cell Distribution Width 13.4 % (11.5-14.5) Platelet Count 407 x10^3/uL (140-400) Neutrophils (%) (Auto) 70 % (31-73) Lymphocytes (%) (Auto) 19 % (24-48) Monocytes (%) (Auto) 9 % (0-9) Eosinophils (%) (Auto) 1 % (0-3) Basophils (%) (Auto) 1 % (0-3) Neutrophils # (Auto) 6.5 x10^3/uL (1.8-7.7) Lymphocytes # (Auto) 1.8 x10^3/uL (1.0-4.8) Monocytes # (Auto) 0.8 x10^3/uL (0.0-1.1) Eosinophils # (Auto) 0.1 x10^3/uL (0.0-0.7) Basophils # (Auto) 0.1 x10^3/uL (0.0-0.2) Sodium Level 138 mmol/L (136-145) Potassium Level 3.6 mmol/L (3.5-5.1) Chloride Level 105 mmol/L (98-107) Carbon Dioxide Level 24 mmol/L (21-32) Anion Gap 9 (6-14) Blood Urea Nitrogen 10 mg/dL (7-20) Creatinine 0.9 mg/dL (0.6-1.0) Estimated GFR (Cockcroft-Gault) 65.5 BUN/Creatinine Ratio 11 (6-20) Glucose Level 96 mg/dL (70-99) Calcium Level 9.6 mg/dL (8.5-10.1) Total Bilirubin 0.7 mg/dL (0.2-1.0) Aspartate Amino Transf (AST/SGOT) 70 U/L (15-37) Alanine Aminotransferase (ALT/SGPT) 86 U/L (14-59) Alkaline Phosphatase 85 U/L (46-116) Troponin I High Sensitivity 5 ng/L (4-50) C-Reactive Protein, Quantitative 11.6 mg/L (0-3.3) AM-Bri-U-Type Natriuretic Peptide 9 pg/mL (0-124) Total Protein 8.8 g/dL (6.4-8.2) Albumin 4.1 g/dL (3.4-5.0) Albumin/Globulin Ratio 0.9 (1.0-1.7) Treponema pallidum Antibody Nonreactive (Nonreactive) Ammonia < 10 mcmol/L (11-34) Hepatitis A IgM Antibody Nonreactive (Nonreactive) Hepatitis B Surface Antigen Nonreactive (Nonreactive) Hepatitis B Core IgM Antibody Nonreactive (Nonreactive) Hepatitis C IgG Antibody Nonreactive (Nonreactive) Test 07/06/21 04:55 Erythrocyte Sedimentation Rate 53 (0-25) Vitamin B12 Level 406 pg/mL (247-911) Thyroid Stimulating Hormone (TSH) 0.958 uIU/mL (0.358-3.74) Medications Current Medications Multi-Ingredient Mouthwash/Gargle (Gi Cocktail) 20 ml 1X ONCE SWSW Last administered on 07/05/21at 14:52; Start 07/05/21 at 14:30; Stop 07/05/21 at 14:31; Status DC Fluoxetine HCl (PROzac) 40 mg DAILY PO ; Start 07/06/21 at 09:00 Pantoprazole Sodium (Protonix) 40 mg BID AC PO Last administered on 07/06/21at 09:19; Start 07/05/21 at 17:30 Ondansetron HCl (Zofran) 4 mg PRN Q4HRS PRN IVP NAUSEA/VOMITING Last administered on 07/05/21at 23:03; Start 07/05/21 at 17:15 Acetaminophen (Tylenol) 650 mg PRN Q6HRS PRN PO MILD PAIN / TEMP > 100.3'F; Start 07/05/21 at 17:15 Trazodone HCl (Desyrel) 50 mg PRN QHS PRN PO INSOMNIA Last administered on 07/05/21at 21:19; Start 07/05/21 at 17:15 Buspirone HCl (Buspar) 10 mg PRN TID PRN PO ANXIETY Last administered on 07/05/21at 21:19; Start 07/05/21 at 19:15 Active Scripts Active Reported Lidocaine 1 Each Adh..patch 1 Each TP DAILY Zolpidem Tartrate Er (Zolpidem Tartrate) 12.5 Mg Tab.mphase 12.5 Mg PO PRN QHS PRN Naproxen 375 Mg Tablet 1 Tab PO DAILY Baclofen 10 Mg Tablet 1 Tab PO TID Effexor Xr (Venlafaxine Hcl) 37.5 Mg Cap.er.24h 1 Cap PO DAILY Ibuprofen 800 Mg Tablet 800 Mg PO PRN Q6HRS PRN Tramadol Hcl 50 Mg Tablet 50 Mg PO DAILY PRN No Known Medications Prior To Admisstion (Info) Each 1 Each Vitals/I & O Vital Sign - Last 24 Hours 07/05/21 07/05/21 07/05/21 07/05/21 12:08 13:30 14:53 15:23 Temp 98.2 98.2 Pulse 97 86 104 90 Resp 18 B/P (MAP) 139/84 (102) 132/84 (100) 170/88 (115) 158/83 (108) Pulse Ox 96 97 99 96 O2 Delivery Room Air Room Air Room Air Room Air 07/05/21 07/05/21 07/05/21 07/05/21 18:11 18:28 19:32 20:00 Temp 98.7 99.6 98.7 99.6 Pulse 101 95 Resp 20 18 B/P (MAP) 130/94 (106) 138/86 (103) Pulse Ox 95 99 O2 Delivery Room Air Room Air Room Air Room Air 07/05/21 07/06/21 07/06/21 07/06/21 22:49 02:38 07:00 08:00 Temp 99.2 99.0 98.1 99.2 99.0 98.1 Pulse 93 85 89 Resp 16 18 17 B/P (MAP) 112/71 (85) 115/72 (86) 128/91 (103) Pulse Ox 98 100 96 O2 Delivery Room Air Room Air Room Air Room Air Intake and Output 07/05/21 07/05/21 07/06/21 15:00 23:00 07:00 Intake Total 100 ml 0 ml Balance 100 ml 0 ml Justicifation of Admission Dx: Justifications for Admission: Justification of Admission Dx: N/A LE ALFARO MD July 06, 2021 10:06
[2021-07-06 11:00] VITALS: BP 126/88
--- NOTE | 2021-07-06 11:50 | NUR ---
SS following for discharge planning. SS reviewed pt chart and discussed with pt RN. Pt is from home and is currently on room air. Pt ad magui with ADL's. Pt expressing stressors at home. Pt reporting that her home is foreclosing and her spouse has left her. Neurology following and requesting PAT team to evaluate pt. PAT team referral made for assessment and recommendations. SS will continue to follow for discharge planning.
[2021-07-06 14:38] VITALS: BP 133/94
[2021-07-06] MEDS ORDERED: BUSP10TA PO ×2 (14:50→18:09)
[2021-07-06] MEDS ORDERED: CITA20TA9 PO ×2 (14:50→18:09)
--- NOTE | 2021-07-06 15:02 | PDOC ---
[employer] PROGRESS NOTE Date of Service DOS: DATE: 07/06/21 TIME: 14:57 Chief Complaint Chief Complaint Confusion -no clear metabolic cause. CRP mildly elevated, CONNER and ANCA pending. This could be complicated depression possible conversion disorder. She does have a family history of dementia be very early onset. has seen neurology outpatient but to me she cannot recall this. Transaminitis - normal TSH, hepatitis profile JESUS on CPAP - continue while inpatient Depression - with anxiety. Not taking any meds. Is complicated by major life stressors going through marital separation. Expressive aphasia -not always consistently having word finding difficulty. Neurology consulted speech-language pathology, she absolutely could benefit from this on an outpatient basis History of Present Illness History of Present Illness Ms Garcia is a 55yo female with PMHx nephrolithiasis, JESUS on CPAP who comes to ED accompanied by her sister with progressive confusion. She is having word finding difficulty and frequently loses track of what she is doing. She is still driving regularly but frequently drives to the location does not know why she went there. The real reason she is the ED currently is because she stopped at her mother's today and did not intend to and her mother contacted the sister. He had significant marital stressors that have come to the point of interfering with her work and she has been so forgetful that her house is about to be foreclosed upon (per sister). She has been 7 years and has been legally and is going through finalization of divorce soon. left her on Monday to go to [place]. She has not any complaints of dysuria no change of bowel habits. She is very anxious and struggles with depression no suicidal thoughts. She has low energy and has significant variability in her sleep most the time she cannot motivate herself to get out of bed. No recent travel or sick contacts. EKG sinus rate 85 bpm leftward axis otherwise normal intervals, QTC 431. Chest radiograph with no acute findings. CT head noncontrast with no acute intracranial hemorrhage no other findings acutely. WBC 9.3, Hb 13.9, platelets 407, NA 138, K3.6, BUN 10, CR 0.9, glucose 96, calcium 9.6, bilirubin 0.7, AST 70, ALT 86, alkaline phosphatase 85, ammonia less than 10, NT proBNP 9, albumin 4.1, high-sensitivity troponin is 5, urine drug screen negative, urinalysis bland. 5/10: Still with memory deficit less so with word finding difficulties. No focal neurologic deficits. Seems to be a reactive depression. She does have some elevations in sed rate of 53 and CRP of 11. Syphilis and hepatitis negative previously had negative HIV testing. CONNER and ANCA antibodies pending. Previously she and her sister note she had a bad side effect from Prozac and would prefer to be on Celexa and as needed BuSpar. Given mental health resources from psychiatric assessment team nurse liaison for follow-up with Behavioral health. Asking for further resources to apply for food stamps as well. 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 Myself and neurology have advised against this and not to get this information out to her given their currently going through divorce proceedings Vitals/I&O Vitals/I&O: Vital Signs Date Time Temp Pulse Resp B/P (MAP) Pulse Ox O2 Delivery O2 Flow Rate FiO2 07/06/21 14:38 98.5 87 17 133/94 (107) 99 Room Air 98.5 I & O 07/05/21 07/05/21 07/06/21 15:00 23:00 07:00 Intake Total 100 ml 0 ml Balance 100 ml 0 ml Physical Exam General: Alert, Oriented X3, Cooperative Heart: Regular rate, Normal S1, Normal S2 Lungs: Clear Abdomen: Normal bowel sounds, Soft Extremities: No clubbing, No cyanosis Skin: No rashes, No breakdown Labs Labs: Laboratory Tests Test 07/05/21 15:05 07/05/21 17:48 07/06/21 04:55 Ammonia < 10 mcmol/L (11-34) Hepatitis A IgM Antibody Nonreactive (Nonreactive) Hepatitis B Surface Antigen Nonreactive (Nonreactive) Hepatitis B Core IgM Antibody Nonreactive (Nonreactive) Hepatitis C IgG Antibody Nonreactive (Nonreactive) Erythrocyte Sedimentation Rate 53 (0-25) Vitamin B12 Level 406 pg/mL (247-911) Thyroid Stimulating Hormone (TSH) 0.958 uIU/mL (0.358-3.74) Assessment and Plan Assessmemt and Plan Problems Medical Problems: (1) Altered mental status Status: Acute Comment Review of Relevant I have reviewed the following items robbie (where applicable) has been applied. Medications: Current Medications Medications (Trade) Dose Ordered Sig/Sil Route PRN Reason Start Time Stop Time Status Last Admin Dose Admin Pantoprazole Sodium (Protonix) 40 mg BID AC PO 07/05/21 17:30 07/06/21 09:19 Ondansetron HCl (Zofran) 4 mg PRN Q4HRS PRN IVP NAUSEA/VOMITING 07/05/21 17:15 07/05/21 23:03 Trazodone HCl (Desyrel) 50 mg PRN QHS PRN PO INSOMNIA 07/05/21 17:15 07/05/21 21:19 Buspirone HCl (Buspar) 10 mg PRN TID PRN PO ANXIETY 07/05/21 19:15 07/05/21 21:19 Justifications for Admission Other Justification DANAY DUEÑAS MD July 06, 2021 15:02
--- NOTE | 2021-07-06 15:05 | PDOC3 ---
Discharge Summary Visit Information Date of Admission: July 05, 2021 Date of Discharge: July 06, 2021 Admitting Diagnosis: Confusion Final Diagnosis Problems Medical Problems: (1) Altered mental status Status: Acute Brief Hospital Course Allergies Allergies Coded Allergies Type Severity Reaction Last Updated Verified No Known Drug Allergies 12/15/13 No Vital Signs Vital Signs Date Time Temp Pulse Resp B/P (MAP) Pulse Ox O2 Delivery O2 Flow Rate FiO2 07/06/21 14:38 98.5 87 17 133/94 (107) 99 Room Air 98.5 Lab Results Laboratory Tests Test 07/05/21 12:45 07/05/21 12:53 07/05/21 15:05 07/05/21 17:48 Urine Collection Type Unknown Urine Color (Auto) Yellow Urine Turbidity Hazy Urine pH (Auto) 5.5 (<5.0-8.0) Urine Specific [place] 1.016 (1.000-1.030) Urine Protein (Auto) Negative mg/dL (Negative) Urine Glucose (Auto)(UA) Negative mg/dL (Negative) Urine Ketones (Auto) Negative mg/dL (Negative) Urine Blood (Auto) Negative (Negative) Urine Nitrite Negative (Negative) Urine Bilirubin (Auto) Negative (Negative) Urine Urobilinogen (Auto) Normal mg/dL (Normal) Urine Leukocyte Esterase (Auto) Negative (Negative) Urine RBC 0 /HPF (0-2) Urine WBC 0 /HPF (0-4) Urine Squamous Epithelial Cells Few /LPF Urine Amorphous Sediment Present /HPF Urine Bacteria 0 /HPF (0-FEW) Urine Mucus Slight /LPF Urine Opiates Screen Neg (NEG) Urine Methadone Screen Neg (NEG) Urine Barbiturates Neg (NEG) Urine Phencyclidine Screen Neg (NEG) Urine Amphetamine/Methamphetamine Neg (NEG) Urine Benzodiazepines Screen Neg (NEG) Urine Cocaine Screen Neg (NEG) Urine Cannabinoids Screen Neg (NEG) Urine Ethyl Alcohol Neg (NEG) White Blood Count 9.3 x10^3/uL (4.0-11.0) Red Blood Count 4.27 x10^6/uL (3.50-5.40) Hemoglobin 13.9 g/dL (12.0-15.5) Hematocrit 40.4 % (36.0-47.0) Mean Corpuscular Volume 95 fL (79-100) Mean Corpuscular Hemoglobin 33 pg (25-35) Mean Corpuscular Hemoglobin Concent 34 g/dL (31-37) Red Cell Distribution Width 13.4 % (11.5-14.5) Platelet Count 407 x10^3/uL (140-400) Neutrophils (%) (Auto) 70 % (31-73) Lymphocytes (%) (Auto) 19 % (24-48) Monocytes (%) (Auto) 9 % (0-9) Eosinophils (%) (Auto) 1 % (0-3) Basophils (%) (Auto) 1 % (0-3) Neutrophils # (Auto) 6.5 x10^3/uL (1.8-7.7) Lymphocytes # (Auto) 1.8 x10^3/uL (1.0-4.8) Monocytes # (Auto) 0.8 x10^3/uL (0.0-1.1) Eosinophils # (Auto) 0.1 x10^3/uL (0.0-0.7) Basophils # (Auto) 0.1 x10^3/uL (0.0-0.2) Sodium Level 138 mmol/L (136-145) Potassium Level 3.6 mmol/L (3.5-5.1) Chloride Level 105 mmol/L (98-107) Carbon Dioxide Level 24 mmol/L (21-32) Anion Gap 9 (6-14) Blood Urea Nitrogen 10 mg/dL (7-20) Creatinine 0.9 mg/dL (0.6-1.0) Estimated GFR (Cockcroft-Gault) 65.5 BUN/Creatinine Ratio 11 (6-20) Glucose Level 96 mg/dL (70-99) Calcium Level 9.6 mg/dL (8.5-10.1) Total Bilirubin 0.7 mg/dL (0.2-1.0) Aspartate Amino Transf (AST/SGOT) 70 U/L (15-37) Alanine Aminotransferase (ALT/SGPT) 86 U/L (14-59) Alkaline Phosphatase 85 U/L (46-116) Troponin I High Sensitivity 5 ng/L (4-50) C-Reactive Protein, Quantitative 11.6 mg/L (0-3.3) AD-Dyx-Q-Type Natriuretic Peptide 9 pg/mL (0-124) Total Protein 8.8 g/dL (6.4-8.2) Albumin 4.1 g/dL (3.4-5.0) Albumin/Globulin Ratio 0.9 (1.0-1.7) Treponema pallidum Antibody Nonreactive (Nonreactive) Ammonia < 10 mcmol/L (11-34) Hepatitis A IgM Antibody Nonreactive (Nonreactive) Hepatitis B Surface Antigen Nonreactive (Nonreactive) Hepatitis B Core IgM Antibody Nonreactive (Nonreactive) Hepatitis C IgG Antibody Nonreactive (Nonreactive) Test 07/06/21 04:55 Erythrocyte Sedimentation Rate 53 (0-25) Vitamin B12 Level 406 pg/mL (247-911) Thyroid Stimulating Hormone (TSH) 0.958 uIU/mL (0.358-3.74) Laboratory Tests Test 07/05/21 15:05 07/05/21 17:48 07/06/21 04:55 Ammonia < 10 mcmol/L (11-34) Hepatitis A IgM Antibody Nonreactive (Nonreactive) Hepatitis B Surface Antigen Nonreactive (Nonreactive) Hepatitis B Core IgM Antibody Nonreactive (Nonreactive) Hepatitis C IgG Antibody Nonreactive (Nonreactive) Erythrocyte Sedimentation Rate 53 (0-25) Vitamin B12 Level 406 pg/mL (247-911) Thyroid Stimulating Hormone (TSH) 0.958 uIU/mL (0.358-3.74) Brief Hospital Course Ms Garcia is a 55yo female with PMHx nephrolithiasis, JESUS on CPAP who comes to ED accompanied by her sister with progressive confusion. She is having word finding difficulty and frequently loses track of what she is doing. She is still driving regularly but frequently drives to the location does not know why she went there. The real reason she is the ED currently is because she stopped at her mother's today and did not intend to and her mother contacted the sister. He had significant marital stressors that have come to the point of interfering with her work and she has been so forgetful that her house is about to be foreclosed upon (per sister). She has been 7 years and has been legally and is going through finalization of divorce soon. left her on Monday to go to [place]. She has not any complaints of dysuria no change of bowel habits. She is very anxious and struggles with depression no suicidal thoughts. She has low energy and has significant variability in her sleep most the time she cannot motivate herself to get out of bed. No recent travel or sick contacts. EKG sinus rate 85 bpm leftward axis otherwise normal intervals, QTC 431. Chest radiograph with no acute findings. CT head noncontrast with no acute intracranial hemorrhage no other findings acutely. WBC 9.3, Hb 13.9, platelets 407, NA 138, K3.6, BUN 10, CR 0.9, glucose 96, calcium 9.6, bilirubin 0.7, AST 70, ALT 86, alkaline phosphatase 85, ammonia less than 10, NT proBNP 9, albumin 4.1, high-sensitivity troponin is 5, urine drug screen negative, urinalysis bland. 07/06: Still with memory deficit less so with word finding difficulties. No focal neurologic deficits. Seems to be a reactive depression. She does have some elevations in sed rate of 53 and CRP of 11. Syphilis and hepatitis negative previously had negative HIV testing. CONNER and ANCA antibodies pending. Previously she and her sister note she had a bad side effect from Prozac and wo uld prefer to be on Celexa and as needed BuSpar. Given mental health resources from psychiatric assessment team nurse liaison for follow-up with Behavioral health. Asking for further resources to apply for food stamps as well. 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 Myself and neurology have advised against this and not to get this information out to her given their currently going through divorce proceedings Consults: Neurology Problem list: Confusion -no clear metabolic cause. CRP mildly elevated, CONNER and ANCA pending. This could be complicated depression possible conversion disorder. She does have a family history of dementia be very early onset. has seen neurology outpatient but to me she cannot recall this. Transaminitis - normal TSH, hepatitis profile JESUS on CPAP - continue while inpatient Severe Depression - with anxiety. Not taking any meds. Is complicated by major life stressors going through marital separation. Celexa and BuSpar prescriptions initiated. Her sister is agreeable to live with her while she is taking her medications and set up outpatient appointments Expressive aphasia -not always consistently having word finding difficulty. Neurology consulted speech-language pathology, she absolutely could benefit from this on an outpatient basis Greater than 30 minutes spent on d/c home Discharge Information Condition at Discharge: Stable Follow Up: Weeks (1) Disposition/Orders: D/C to Home Scheduled Citalopram Hydrobromide (Celexa) 20 Mg Tablet, 1 TAB PO DAILY for Depression for 30 Days, #30 Ref 2 Prescribed by: DANAY DUEÑAS MD on 07/06/21 1450 Scheduled PRN Buspirone Hcl (Buspirone Hcl) 10 Mg Tablet, 10 MG PO PRN TID PRN for ANXIETY for 30 Days, #90 Ref 2 Prescribed by: DANAY DUEÑAS MD on 07/06/21 1450 Discontinued Medications Baclofen (Baclofen) 10 Mg Tablet, 1 TAB PO TID, #90 Ref 2 (Reported) Entered as Reported by: HOLLI MAHONEY on 08/17/17 1115 Ibuprofen (Ibuprofen) 800 Mg Tablet, 800 MG PO PRN Q6HRS PRN for INFLAMMATION, (Reported) Entered as Reported by: LUARA CRAWFORD on 01/02/16 0958 Info (No Known Medications Prior To Admisstion) Each, 1 EACH MC, (Reported) Entered as Reported by: EFRAÍN DENG on 12/17/13 0655 Lidocaine (Lidocaine) 1 Each Adh..patch, 1 EACH TP DAILY for pain, (Reported) Entered as Reported by: KENDRA QUIROGA on 05/20/19 0835 Naproxen (Naproxen) 375 Mg Tablet, 1 TAB PO DAILY, #60 Ref 5 (Reported) Entered as Reported by: HOLLI MAHONEY on 08/17/17 1116 Tramadol Hcl (Tramadol Hcl) 50 Mg Tablet, 50 MG PO DAILY PRN for PAIN, Ref 0 (Reported) Entered as Reported by: LAURA CRAWFORD on 01/02/16 0958 Venlafaxine Hcl (Effexor Xr) 37.5 Mg Cap.er.24h, 1 CAP PO DAILY, #90 Ref 3 (Reported) Entered as Reported by: TED NANE on 11/16/16 0910 Zolpidem Tartrate (Zolpidem Tartrate Er) 12.5 Mg Tab.mphase, 12.5 MG PO PRN QHS PRN for INSOMNIA, Ref 0 (Reported) Entered as Reported by: KENDRA QUIROGA on 05/20/19 0835 Justicifation of Admission Dx: Justifications for Admission: Justification of Admission Dx: N/A DANAY DUEÑAS MD July 06, 2021 15:05
--- NOTE | 2021-07-06 19:05 | NUR ---
PT JUST LEFT WITH A MALE. ILAN WILSON VERIFIED THIS. NO CLOTHES, SENT OUT WITH 2 OF [facility]. LCRN
--- NOTE | 2021-07-06 19:24 | NUR ---
Discharge Note: KIRK PEÑA Discharge instructions and discharge home medications reviewed with Patient and a copy given. All questions have been answered and understanding verbalized. Pt sister not at bedside upon DC. Spoke with Deidre over the phone regarding DC and medications. Deidre requested medications to be sent to [facility] pharmacy. Dr. Ortega sent in two new scripts for patient. Pt brother in law picked up patient. Pt in stable condition at time of DC.
[2021-07-07 20:26] LABS: ANA INTERP Negative (.)
[2021-07-08 16:48] LABS: PROTEINASE 3 ANTIBODY <3.5 U/mL (0.0-3.5)
== END 2021-07-06 19:28 | disposition home or self-care (01) | DRG 880 ==
LOC: ER 11:44 → 6 SOUTH 14:25
PROVIDERS: ADMIT Internal Medicine; ATTEND Internal Medicine
DX: F44.9 Dissociative and conversion disorder, unspecified (principal); R47.01 Aphasia; E78.5 Hyperlipidemia, unspecified; F32.9 Major depressive disorder, single episode, unspecified; F41.9 Anxiety disorder, unspecified; G47.33 Obstructive sleep apnea (adult) (pediatric); I10 Essential (primary) hypertension; J32.0 Chronic maxillary sinusitis; M47.814 Spondylosis without myelopathy or radiculopathy, thoracic region; Z82.0 Family history of epilepsy and other diseases of the nervous system; Z87.442 Personal history of urinary calculi; Z87.891 Personal history of nicotine dependence; Z90.12 Acquired absence of left breast and nipple; K21.9 Gastro-esophageal reflux disease without esophagitis; R74.01 Elevation of levels of liver transaminase levels
CPT/HCPCS: 36415; 70450; 71045; 80053; 80307; 81001; 82140; 82607; 83520; 83880; 84443; 84484; 85025; 85651; 86038; 86140; 86592; 86705; 86709; 86803; 87340; 93005; J2405; 83516; 83876; 92523-GN; 99285-25; G0378